=== PATIENT | male | born 1960 | race Caucasian/White ===

== ENCOUNTER 2017-11-19 14:32 | Inpatient (IN) | payer OTHER ==
[2017-11-19 17:02] VITALS: BMI 29.0
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
[2017-11-19] MEDS ORDERED: guaiFENesin/D-METHORPHAN HB 10 ML UNIT-DOSE CUPS PO PRN (20:59)
[2017-11-19] MEDS ORDERED: chlordiazePOXIDE HCL 25 MG CAPSULE PO PRN (20:59)
[2017-11-19] MEDS ORDERED: MAGNESIUM CITRATE 300 ML BOTTLE PO PRN (20:59)
[2017-11-19] MEDS ORDERED: P-EPHED 60MG/TRIPROLIDI 2.5MG TABLET PO PRN (20:59)
[2017-11-19] MEDS ORDERED: LOPERAMIDE HCL 2 MG CAPSULE PO PRN (20:59)
[2017-11-19] MEDS ORDERED: IBUPROFEN 400 MG TABLET (FP) PO PRN (20:59)
[2017-11-19] MEDS ORDERED: ACETAMINOPHEN 325 MG TABLET (FP) PO PRN (20:59)
[2017-11-19] MEDS ORDERED: chlordiazePOXIDE HCL 25 MG CAPSULE PO ONE (20:59)
[2017-11-19] MEDS ORDERED: MAG HYDROX/AL HYDROX/SIMETH 30 ML UNIT-DOSE CUP PO PRN (20:59)
[2017-11-19] MEDS ORDERED: MAGNESIUM HYDROX 2400MG/30ML ORAL SUSPENSION 30 ML CUP PO PRN (20:59)
[2017-11-19] MEDS ORDERED: MENTHOL/PHENOL 1 EACH UD MM PRN (20:59)
[2017-11-19] MEDS ORDERED: MELATONIN 5 MG TABLETS PO PRN (22:00)
[2017-11-19] MEDS: THIAMINE HCL 100 MG TABLET (FP) PO SCH (22:02)
[2017-11-19] MEDS: chlordiazePOXIDE HCL 25 MG CAPSULE PO SCH (23:26)
[2017-11-20 01:53] LABS: URINE APPEARANCE CLEAR; URINE BILIRUBIN NEGATIVE (<2.0 mg/dL); URINE BLOOD NEGATIVE (NEGATIVE); URINE COLOR DKYELLOW; URINE GLUCOSE (UA) NEGATIVE (NEGATIVE); URINE KETONE TRACE (NEGATIVE); URINE LEUK ESTERASE NEGATIVE (NEGATIVE); URINE NITRITE NEGATIVE (NEGATIVE)
[2017-11-20 01:56] LABS: URINE PROTEIN 2+ (NEGATIVE)
[2017-11-20 02:01] LABS: URINE MUCUS MANY
[2017-11-20] MEDS: chlordiazePOXIDE HCL 25 MG CAPSULE PO SCH ×4 (05:55→22:28)
--- NOTE | 2017-11-20 10:06 | EKG ---
Test Reason : Blood Pressure : / mmHG Vent. Rate : 087 BPM Atrial Rate : 087 BPM P-R Int : 178 ms QRS Dur : 098 ms QT Int : 372 ms P-R-T Axes : 027 005 048 degrees QTc Int : 447 ms NORMAL SINUS RHYTHM NON-SPECIFIC INTRA-VENTRICULAR CONDUCTION DELAY NO PREVIOUS ECGS AVAILABLE Confirmed by GANGA SELF MD ([id number]) on 11/20/2017 10:06:25 AM Referred By: Confirmed By:GANGA SELF MD
[2017-11-20 10:25] LABS: HEMATOCRIT 43.3 % (35.4-49); MCH 33.7 pg (25.7-33.7); MCHC 34.7 g/dl (32.0-35.9); MEAN CELL VOLUME 97.4 fl (80-96); MEAN PLT VOLUME 8.8 fl (7.5-11.1); PLATELET COUNT 144 K/MM3 (134-434); RBC 4.45 M/mm3 (4.00-5.60); RDW 13.3 % (11.9-15.9); WHITE BLOOD COUNT 8.7 K/mm3 (4.0-10.0)
[2017-11-20 10:30] LABS: ALBUMIN 3.7 g/dl (3.4-5.0); CALCIUM 8.8 mg/dL (8.5-10.1); CHLORIDE 100 mmol/L (98-107); POTASSIUM 3.4 mmol/L (3.5-5.1); SODIUM 140 mmol/L (136-145)
[2017-11-20 10:36] LABS: ALK PHOS 97 U/L (45-117); ANION GAP 13 (8-16); BILIRUBIN,TOTAL 1.2 mg/dL (0.2-1.0); BLOOD UREA NITROGEN 10 mg/dL (7-18); CO2 27 mmol/L (21-32); CREATININE 0.9 mg/dL (0.7-1.3); GLUCOSE,RANDOM 109 mg/dL (74-106); SGOT/AST 67 U/L (15-37); SGPT/ALT 56 U/L (12-78); TOT PROT 7.1 g/dl (6.4-8.2)
[2017-11-20] MEDS: PRENATAL VITAMINS W/ FOLIC ACID TABLET (FP) PO SCH (10:53)
--- NOTE | 2017-11-20 12:20 | PN ---
S CIWA - CIWA Score Nausea/Vomitin Muscle Tremors: 3 Anxiety: 3 Agitation: 2 Paroxysmal Sweats: 1-Minimal Palms Moist Orientation: 0-Oriented Tacttile Disturbances: 1-Very Mild Itch/Numbness Auditory Disturbances: 1-Very Mild Visual Disturbances: 0-None Headache: 2-Mild CIWA-Ar Total Score: 16 BHS Progress Note (SOAP) Subjective: ALERT,IRRITABLE,ANXIOUS,INTERRUPTED SLEEP,TREMOR Objective: 11/20/17 12:17 Vital Signs Temperature 99.1 F 11/20/17 10:00 Pulse Rate 116 H 11/20/17 10:00 Respiratory Rate 20 11/20/17 10:00 Blood Pressure 122/90 11/20/17 10:00 O2 Sat by Pulse Oximetry (%) EKG NSR,NORMAL ECG,87/MIN Laboratory Last Values WBC 8.7 K/mm3 (4.0-10.0) D 11/20/17 08:00 RBC 4.45 M/mm3 (4.00-5.60) 11/20/17 08:00 Hgb 15.0 GM/dL (11.7-16.9) D 11/20/17 08:00 Hct 43.3 % (35.4-49) 11/20/17 08:00 MCV 97.4 fl (80-96) H 11/20/17 08:00 MCH 33.7 pg (25.7-33.7) 11/20/17 08:00 MCHC 34.7 g/dl (32.0-35.9) 11/20/17 08:00 RDW 13.3 % (11.9-15.9) D 11/20/17 08:00 Plt Count 144 K/MM3 (134-434) D 11/20/17 08:00 MPV 8.8 fl (7.5-11.1) 11/20/17 08:00 Sodium 140 mmol/L (136-145) 11/20/17 08:00 Potassium 3.4 mmol/L (3.5-5.1) L 11/20/17 08:00 Chloride 100 mmol/L (98-107) 11/20/17 08:00 Carbon Dioxide 27 mmol/L (21-32) 11/20/17 08:00 Anion Gap 13 (8-16) 11/20/17 08:00 BUN 10 mg/dL (7-18) D 11/20/17 08:00 Creatinine 0.9 mg/dL (0.7-1.3) D 11/20/17 08:00 Creat Clearance w eGFR > 60 (>60) 11/20/17 08:00 Random Glucose 109 mg/dL (74-106) H 11/20/17 08:00 Calcium 8.8 mg/dL (8.5-10.1) 11/20/17 08:00 Total Bilirubin 1.2 mg/dL (0.2-1.0) H D 11/20/17 08:00 AST 67 U/L (15-37) H D 11/20/17 08:00 ALT 56 U/L (12-78) 11/20/17 08:00 Alkaline Phosphatase 97 U/L (45-117) D 11/20/17 08:00 Total Protein 7.1 g/dl (6.4-8.2) 11/20/17 08:00 Albumin 3.7 g/dl (3.4-5.0) D 11/20/17 08:00 Urine Color Dkyellow 11/20/17 00:19 Urine Appearance Clear 11/20/17 00:19 Urine pH 7.0 (5.0-8.0) 11/20/17 00:19 Ur Specific [place] 1.021 (1.001-1.035) 11/20/17 00:19 Urine Protein 2+ (NEGATIVE) H 11/20/17 00:19 Urine Glucose (UA) Negative (NEGATIVE) 11/20/17 00:19 Urine Ketones Trace (NEGATIVE) H 11/20/17 00:19 Urine Blood Negative (NEGATIVE) 11/20/17 00:19 Urine Nitrite Negative (NEGATIVE) 11/20/17 00:19 Urine Bilirubin Negative (<2.0 mg/dL) 11/20/17 00:19 Urine Urobilinogen 2.0 mg/dL (0.2-1.0) 11/20/17 00:19 Ur Leukocyte Esterase Negative (NEGATIVE) 11/20/17 00:19 Urine WBC (Auto) 1 /hpf (3-5) 11/20/17 00:19 Urine RBC (Auto) 3 /hpf (0-3) 11/20/17 00:19 Urine Mucus Many 11/20/17 00:19 RPR Titer Nonreactive (NONREACTIVE) 11/20/17 08:00 Assessment: 11/20/17 12:19 WITHDRAWAL SYMPTOM Plan: CONTINUE DETOX,KIS 3.4,HYPOKALEMIA,K DUR 20 MEQ PO DAILY
[2017-11-20] MEDS: RANITIDINE HCL 150 MG TABLET (FP) PO SCH (13:04)
[2017-11-20] MEDS: POTASSIUM CHLORIDE TABS 20 MEQ TABLET.ER (FP) PO SCH (13:18)
--- NOTE | 2017-11-20 14:50 | CONSULT ---
[facility] Psychiatric Consult - Data Date of interview: 11/20/17 Admission source: [facility] Identifying data: One of multiple admissions to [facility] for this 57 y/o male seeking detox treatment at [address] [place] [address] for alcohol dependence.Patient is without children,domiciled,unemployed (disabled) and supported on [facility] benefits. Substance Abuse History: Patient confirms current alcohol abuse as detailed in this [facility] report : Smoking history: Former smoker. Have you smoked in the past 12 months: No. Aproximately how many cigarettes per day: 0. If you are a former smoker, when did you quit?: 61/2 years ago. Hx Chewing Tobacco Use: No. Initiated information on smoking cessation: No. - Substance & Tx. History. Hx Alcohol Use: Yes. Hx Substance Use: Yes. Substance Use Type: Alcohol. Hx Substance Use Treatment: Yes ([facility] June 2016). - Substances Abused. Alcohol. Route: Oral. Frequency: Daily. Amount used: 3 CANS BEER. Age of first use: 44. Date of Last Use: 11/19/17 Medical History: Remarkable for a history of seizure disorder,hypertension,DVT in right leg tendinitis in left leg,injury to left biceps and left rotator cuff (self-report),herniated discs,chronic lumbar pain,dyslipidemia and past umbilical herniorraphy.Patient underwent neurosurgery (craniotomy) in 2014 for cerebral hemorrhage. Psychiatric History: History of two psychiatric hospitalizations in 2016 ( [facility] and [facility]).Diagnosed with Bipolar Disorder.Prescribed olanzapine 10 mg/hs + celexa 50 mg/day + trazodone 50 mg/ hs.Mr Joseph endorses a remote history of one suicide attempt via overdose ( adolescence).patient goes to the [facility] OPD clinic for his psychiatric aftercare. Physical/Sexual Abuse/Trauma History: Patient denies history of abuse. Additional Comment: Urine Drug Screen Results: TCA-Tricyclic Antidepressant.Noted. Mental Status Exam - Mental Status Exam Alert and Oriented to: Time, Place, Person Cognitive Function: Good Patient Appearance: Well Groomed Mood: Nervous, Withdrawn Affect: Mood Congruent Patient Behavior: Fatigued, Appropriate, Cooperative Speech Pattern: Clear, Appropriate Voice Loudness: Normal Thought Process: Goal Oriented Thought Disorder: Not Present Hallucinations: Denies Suicidal Ideation: Denies Homicidal Ideation: Denies Insight/Judgement: Fair Sleep: Poorly, Difficulty falling asleep Appetite: Good Gait/Station: Other (ambulates with a walker) Psychiatric Findings - Problem List ([place] 1, 2,3) (1) Alcohol dependence with uncomplicated withdrawal Status: Acute (2) Nicotine dependence Status: Acute Qualifiers: Nicotine product type: cigarettes Substance use status: uncomplicated Qualified Code(s): F17.210 - Nicotine dependence, cigarettes, uncomplicated (3) Bipolar disorder Status: Chronic Comment: As per self-report.On medications.Followed at [facility]PD clinic in the [place]. (4) Insomnia Status: Acute - Initial Treatment Plan Initial Treatment Plan: Psychoeducation.Records revisited.Sleep hygiene.Pharmacy claims reviewed (refills dated 11/19/17 for celexa 20 mg # 30 + trazodone 100 mg # 30 at [facility] + olanzapine 10 mg # 30 on 10/24/17 ) .No mention of seroquel by patient (although seen in pharmacy claims) .Medications ordered : zyprexa 10 mg po daily + trazodone 100 mg po hs + celexa 20 mg po daily.Side effects/benefits of each drug are discussed with the patient.He is specifically made aware of the potential for priapism,suicidal ideation,sexual dysfunction,metabolic syndrome and cardiovascular adverese events.Mr Roa endorses his medications as well tolerated and effective.Insists on their continuation in this hospital course.Falls precautions.Observation. NO scripts needed at discharge from [facility].
[2017-11-20] MEDS ORDERED: traZODone HCL 50 MG TABLET (FP) PO SCH (22:00)
[2017-11-20] MEDS: traZODone HCL 100 MG TABLET (FP) PO SCH (22:28)
[2017-11-20] MEDS: THIAMINE HCL 100 MG TABLET (FP) PO SCH (22:28)
[2017-11-21] MEDS: chlordiazePOXIDE HCL 25 MG CAPSULE PO SCH ×3 (05:30→18:07)
[2017-11-21] MEDS: OLANZapine 10 MG TABLET PO SCH (10:41)
[2017-11-21] MEDS: RANITIDINE HCL 150 MG TABLET (FP) PO SCH (10:41)
[2017-11-21] MEDS: CITALOPRAM HYDROBROMIDE 20 MG TABLET (FP) PO SCH (10:41)
[2017-11-21] MEDS: PRENATAL VITAMINS W/ FOLIC ACID TABLET (FP) PO SCH (10:41)
[2017-11-21] MEDS: POTASSIUM CHLORIDE TABS 20 MEQ TABLET.ER (FP) PO SCH (10:41)
--- NOTE | 2017-11-21 14:29 | PN ---
S CIWA - CIWA Score Nausea/Vomitin Muscle Tremors: 3 Anxiety: 2 Agitation: 2 Paroxysmal Sweats: 1-Minimal Palms Moist Orientation: 0-Oriented Tacttile Disturbances: 1-Very Mild Itch/Numbness Auditory Disturbances: 1-Very Mild Visual Disturbances: 0-None Headache: 2-Mild CIWA-Ar Total Score: 15 BHS Progress Note (SOAP) Subjective: ALERT,IRRITABLE,ANXIOUS,INTERRUPTED SLEEP,TREMOR Objective: 11/21/17 14:28 Vital Signs Temperature 98.1 F 11/21/17 11:16 Pulse Rate 78 11/21/17 11:16 Respiratory Rate 18 11/21/17 11:16 Blood Pressure 144/78 11/21/17 11:16 O2 Sat by Pulse Oximetry (%) Assessment: 11/21/17 14:28 WITHDRAWAL SYMPTOM Plan: CONTINUE DETOX,REPEAT K IN AM
[2017-11-21] MEDS: traZODone HCL 100 MG TABLET (FP) PO SCH (22:37)
[2017-11-21] MEDS: THIAMINE HCL 100 MG TABLET (FP) PO SCH (22:37)
[2017-11-21] MEDS: chlordiazePOXIDE 5 MG CAPSULE PO SCH (22:37)
[2017-11-22] MEDS: chlordiazePOXIDE 5 MG CAPSULE PO SCH ×3 (05:43→18:05)
[2017-11-22] MEDS: RANITIDINE HCL 150 MG TABLET (FP) PO SCH (10:28)
[2017-11-22] MEDS: POTASSIUM CHLORIDE TABS 20 MEQ TABLET.ER (FP) PO SCH (10:29)
[2017-11-22] MEDS: OLANZapine 10 MG TABLET PO SCH (10:29)
[2017-11-22] MEDS: CITALOPRAM HYDROBROMIDE 20 MG TABLET (FP) PO SCH (10:29)
[2017-11-22] MEDS: PRENATAL VITAMINS W/ FOLIC ACID TABLET (FP) PO SCH (10:29)
--- NOTE | 2017-11-22 14:44 | PN ---
BHS Progress Note (SOAP) Subjective: feeling better no tremor less sweat sleep throughout the night alert denies gi distress denies pain Objective: 11/22/17 14:43 Vital Signs Temperature 97.2 F L 11/22/17 13:08 Pulse Rate 89 11/22/17 13:08 Respiratory Rate 20 11/22/17 13:08 Blood Pressure 133/81 11/22/17 13:08 O2 Sat by Pulse Oximetry (%) Laboratory Last Values WBC 8.7 K/mm3 (4.0-10.0) D 11/20/17 08:00 RBC 4.45 M/mm3 (4.00-5.60) 11/20/17 08:00 Hgb 15.0 GM/dL (11.7-16.9) D 11/20/17 08:00 Hct 43.3 % (35.4-49) 11/20/17 08:00 MCV 97.4 fl (80-96) H 11/20/17 08:00 MCH 33.7 pg (25.7-33.7) 11/20/17 08:00 MCHC 34.7 g/dl (32.0-35.9) 11/20/17 08:00 RDW 13.3 % (11.9-15.9) D 11/20/17 08:00 Plt Count 144 K/MM3 (134-434) D 11/20/17 08:00 MPV 8.8 fl (7.5-11.1) 11/20/17 08:00 Sodium 140 mmol/L (136-145) 11/20/17 08:00 Potassium 3.7 mmol/L (3.5-5.1) 11/22/17 07:40 Chloride 100 mmol/L (98-107) 11/20/17 08:00 Carbon Dioxide 27 mmol/L (21-32) 11/20/17 08:00 Anion Gap 13 (8-16) 11/20/17 08:00 BUN 10 mg/dL (7-18) D 11/20/17 08:00 Creatinine 0.9 mg/dL (0.7-1.3) D 11/20/17 08:00 Creat Clearance w eGFR > 60 (>60) 11/20/17 08:00 Random Glucose 109 mg/dL (74-106) H 11/20/17 08:00 Calcium 8.8 mg/dL (8.5-10.1) 11/20/17 08:00 Total Bilirubin 1.2 mg/dL (0.2-1.0) H D 11/20/17 08:00 AST 67 U/L (15-37) H D 11/20/17 08:00 ALT 56 U/L (12-78) 11/20/17 08:00 Alkaline Phosphatase 97 U/L (45-117) D 11/20/17 08:00 Total Protein 7.1 g/dl (6.4-8.2) 11/20/17 08:00 Albumin 3.7 g/dl (3.4-5.0) D 11/20/17 08:00 Urine Color Dkyellow 11/20/17 00:19 Urine Appearance Clear 11/20/17 00:19 Urine pH 7.0 (5.0-8.0) 11/20/17 00:19 Ur Specific [place] 1.021 (1.001-1.035) 11/20/17 00:19 Urine Protein 2+ (NEGATIVE) H 11/20/17 00:19 Urine Glucose (UA) Negative (NEGATIVE) 11/20/17 00:19 Urine Ketones Trace (NEGATIVE) H 11/20/17 00:19 Urine Blood Negative (NEGATIVE) 11/20/17 00:19 Urine Nitrite Negative (NEGATIVE) 11/20/17 00:19 Urine Bilirubin Negative (<2.0 mg/dL) 11/20/17 00:19 Urine Urobilinogen 2.0 mg/dL (0.2-1.0) 11/20/17 00:19 Ur Leukocyte Esterase Negative (NEGATIVE) 11/20/17 00:19 Urine WBC (Auto) 1 /hpf (3-5) 11/20/17 00:19 Urine RBC (Auto) 3 /hpf (0-3) 11/20/17 00:19 Urine Mucus Many 11/20/17 00:19 RPR Titer Nonreactive (NONREACTIVE) 11/20/17 08:00 lab noted Assessment: 11/22/17 14:43 mild withdrawal sx Plan: medically supervised detox
[2017-11-22] MEDS: chlordiazePOXIDE HCL 10 MG CAPSULE PO SCH (22:35)
[2017-11-22] MEDS: THIAMINE HCL 100 MG TABLET (FP) PO SCH (22:35)
[2017-11-22] MEDS: traZODone HCL 100 MG TABLET (FP) PO SCH (22:35)
[2017-11-23] MEDS: chlordiazePOXIDE HCL 10 MG CAPSULE PO SCH ×2 (05:36→10:43)
--- NOTE | 2017-11-23 09:14 | DS ---
[facility] Detox Discharge Summary Admission Date: 11/19/17 Discharge Date: 11/23/17 - History Present History: Alcohol Dependence Additional Comments: FOLLOW UP WITH AFTER CARE PROGRAM ARRANGEMENT Pertinent Past History: HYPERTENSION GERD NEUROPATHY WALKER AMBULATORY AID WEIGHT LOSS HYPOKALEMIA SEIZURE HISTORY OF BRAIN SURGERY SUBDURAL HEMATOMA HISTORY OF DVT SYNCOPE - Physical Exam Results Vital Signs: Vital Signs Temperature 97.9 F 11/23/17 05:58 Pulse Rate 78 11/23/17 05:58 Respiratory Rate 18 11/23/17 05:58 Blood Pressure 114/73 11/23/17 05:58 O2 Sat by Pulse Oximetry (%) Pertinent Admission Physical Exam Findings: WITHDRAWAL SIGNS AND SYMPTOM Laboratory Last Values WBC 8.7 K/mm3 (4.0-10.0) D 11/20/17 08:00 RBC 4.45 M/mm3 (4.00-5.60) 11/20/17 08:00 Hgb 15.0 GM/dL (11.7-16.9) D 11/20/17 08:00 Hct 43.3 % (35.4-49) 11/20/17 08:00 MCV 97.4 fl (80-96) H 11/20/17 08:00 MCH 33.7 pg (25.7-33.7) 11/20/17 08:00 MCHC 34.7 g/dl (32.0-35.9) 11/20/17 08:00 RDW 13.3 % (11.9-15.9) D 11/20/17 08:00 Plt Count 144 K/MM3 (134-434) D 11/20/17 08:00 MPV 8.8 fl (7.5-11.1) 11/20/17 08:00 Sodium 140 mmol/L (136-145) 11/20/17 08:00 Potassium 3.7 mmol/L (3.5-5.1) 11/22/17 07:40 Chloride 100 mmol/L (98-107) 11/20/17 08:00 Carbon Dioxide 27 mmol/L (21-32) 11/20/17 08:00 Anion Gap 13 (8-16) 11/20/17 08:00 BUN 10 mg/dL (7-18) D 11/20/17 08:00 Creatinine 0.9 mg/dL (0.7-1.3) D 11/20/17 08:00 Creat Clearance w eGFR > 60 (>60) 11/20/17 08:00 Random Glucose 109 mg/dL (74-106) H 11/20/17 08:00 Calcium 8.8 mg/dL (8.5-10.1) 11/20/17 08:00 Total Bilirubin 1.2 mg/dL (0.2-1.0) H D 11/20/17 08:00 AST 67 U/L (15-37) H D 11/20/17 08:00 ALT 56 U/L (12-78) 11/20/17 08:00 Alkaline Phosphatase 97 U/L (45-117) D 11/20/17 08:00 Total Protein 7.1 g/dl (6.4-8.2) 11/20/17 08:00 Albumin 3.7 g/dl (3.4-5.0) D 11/20/17 08:00 Urine Color Dkyellow 11/20/17 00:19 Urine Appearance Clear 11/20/17 00:19 Urine pH 7.0 (5.0-8.0) 11/20/17 00:19 Ur Specific [place] 1.021 (1.001-1.035) 11/20/17 00:19 Urine Protein 2+ (NEGATIVE) H 11/20/17 00:19 Urine Glucose (UA) Negative (NEGATIVE) 11/20/17 00:19 Urine Ketones Trace (NEGATIVE) H 11/20/17 00:19 Urine Blood Negative (NEGATIVE) 11/20/17 00:19 Urine Nitrite Negative (NEGATIVE) 11/20/17 00:19 Urine Bilirubin Negative (<2.0 mg/dL) 11/20/17 00:19 Urine Urobilinogen 2.0 mg/dL (0.2-1.0) 11/20/17 00:19 Ur Leukocyte Esterase Negative (NEGATIVE) 11/20/17 00:19 Urine WBC (Auto) 1 /hpf (3-5) 11/20/17 00:19 Urine RBC (Auto) 3 /hpf (0-3) 11/20/17 00:19 Urine Mucus Many 11/20/17 00:19 RPR Titer Nonreactive (NONREACTIVE) 11/20/17 08:00 Vital Signs Temperature 97.9 F 11/23/17 05:58 Pulse Rate 78 04/02/18 05:58 Respiratory Rate 18 11/23/17 05:58 Blood Pressure 114/73 11/23/17 05:58 O2 Sat by Pulse Oximetry (%) - Treatment Hospital Course: Detox Protocol Followed, Detoxed Safely, Responded well, Discharged Condition Good, Rehab Referral Accepted - Medication Discharge Medications: Ambulatory Orders Metoprolol Succinate [Toprol Xl] 50 mg PO DAILY 11/19/17 Olanzapine 10 mg PO DAILY 11/19/17 Trazodone HCl 100 mg PO HS 11/19/17 - Diagnosis (1) Alcohol dependence with uncomplicated withdrawal Current Visit: Yes Status: Acute (2) Hypokalemia Current Visit: Yes Status: Acute (3) Hx of deep venous thrombosis Current Visit: Yes Status: Acute (4) GERD (gastroesophageal reflux disease) Current Visit: Yes Status: Chronic Qualifiers: Esophagitis presence: without esophagitis Qualified Code(s): K21.9 - Gastro -esophageal reflux disease without esophagitis (5) Hypertension Current Visit: Yes Status: Chronic Qualifiers: Hypertension type: essential hypertension (6) Neuropathy Current Visit: Yes Status: Chronic (7) Seizure Current Visit: No Status: Chronic (8) Syncope Current Visit: No Status: Chronic (9) Walker as ambulation aid Current Visit: No Status: Chronic - AMA Did Patient Leave Against Medical Advice: No
--- NOTE | 2017-11-23 09:19 | PN ---
S Progress Note (SOAP) Subjective: ALERT,NO COMPLAINT Objective: 11/23/17 09:17 Vital Signs Temperature 97.9 F 11/23/17 05:58 Pulse Rate 78 11/23/17 05:58 Respiratory Rate 18 11/23/17 05:58 Blood Pressure 114/73 11/23/17 05:58 O2 Sat by Pulse Oximetry (%) Assessment: 11/23/17 09:18 DETOX COMPLETED,NO WITHDRAWAL SYMPTOM Plan: DETOX COMPLETED,NO WITHDRAWAL SYMPTOM,DISCHARGE TODAY
[2017-11-23] MEDS: RANITIDINE HCL 150 MG TABLET (FP) PO SCH (10:43)
[2017-11-23] MEDS: CITALOPRAM HYDROBROMIDE 20 MG TABLET (FP) PO SCH (10:43)
[2017-11-23] MEDS: PRENATAL VITAMINS W/ FOLIC ACID TABLET (FP) PO SCH (10:44)
[2017-11-23] MEDS: OLANZapine 10 MG TABLET PO SCH (10:45)
[2017-11-23] MEDS: POTASSIUM CHLORIDE TABS 20 MEQ TABLET.ER (FP) PO SCH (10:47)
[2017-11-23 13:08] VITALS: BP 124/94; PULSE 101; TEMP 98.1
== END 2017-11-23 12:18 | disposition home or self-care (01) | DRG 897 ==
LOC: YASAS 14:32 → Y6N 21:06
PROVIDERS: ADMIT Internal Medicine; ATTEND Internal Medicine
PROC: HZ2ZZZZ Detoxification Services for Substance Abuse Treatment (ICD-10-PCS; principal; 2017-11-19)
DX: F10.230 Alcohol dependence with withdrawal, uncomplicated (principal); F31.89 Other bipolar disorder; F17.210 Nicotine dependence, cigarettes, uncomplicated; G47.00 Insomnia, unspecified; I10 Essential (primary) hypertension; E87.6 Hypokalemia; K21.9 Gastro-esophageal reflux disease without esophagitis; Z86.69 Personal history of other diseases of the nervous system and sense organs; R26.89 Other abnormalities of gait and mobility; Z99.89 Dependence on other enabling machines and devices; R63.4 Abnormal weight loss; Z68.29 Body mass index [BMI] 29.0-29.9, adult; Z91.5 Personal history of self-harm
CPT/HCPCS: 36415; 80053; 81003; 81015; 84132; 85027; 86593; 93005; 93010

== ENCOUNTER 2017-12-22 10:45 | Inpatient (IN) | payer OTHER ==
--- NOTE | 2017-12-22 10:45 | PN ---
S Progress Note Note: Patient fell while signing in hit head on left side but no abrasion burise or broken skin also caliams ot have injured left knee. FAlll protocol 1 to be ordered andmedical clearance by ED needed prior to admitting for alcohol detox. VSS
[2017-12-22 10:55] VITALS: BMI 29.0
--- NOTE | 2017-12-22 14:38 | HP ---
CIWA Score - CIWA Score Nausea/Vomitin-Mild Nausea/No Vomiting Muscle Tremors: 4-Moderate,w/Arms Extend Anxiety: 4-Mod. Anxious/Guarded Agitation: 4-Moderately Restless Paroxysmal Sweats: 1-Minimal Palms Moist Orientation: 1-Uncertain about Date Tacttile Disturbances: 0-None Auditory Disturbances: 0-None Visual Disturbances: 0-None Headache: 0-None Present CIWA-Ar Total Score: 15 Admission ROS BHS - HPI Chief Complaint: withdrawal sx alcohol return from er treated with fall hit head to ground negative ct scan patient is alert oriented x 2 ambulate with walker speech clearly uncertain about date long history of hypokalemia taking K+ supplement lab pending history of anemia no treatment lab pending Allergies/Adverse Reactions: Allergies Allergy/AdvReac Type Severity Reaction Status Date / Time No Known Allergies Allergy Verified 12/22/17 15:00 History of Present Illness: 57 years old male with long history of alcohol dependence has cerebral hemorrage 2014 history of right leg dvt ambulate with walker left shoulder rotated cup reparied 2014 is admitted to detox Exam Limitations: No Limitations - Ebola screening Have you traveled outside of the country in the last 21 days: No Have you had contact with anyone from an Ebola affected area: No Have you been sick,other than usual withdrawal symptoms: No Do you have a fever: No - Review of Systems Constitutional: Diaphoresis, Weight Stable EENT: reports: No Symptoms Reported Respiratory: reports: No Symptoms reported Cardiac: reports: No Symptoms Reported GI: reports: Diarrhea, Nausea, Indigestion, Abdominal cramping : reports: No Symptoms Reported Musculoskeletal: reports: No Symptoms Reported Integumentary: reports: No Symptoms Reported Neuro: reports: Seizure (last seizure a year ago), Tremors Endocrine: reports: No Symptoms Reported Hematology: reports: No Symptoms Reported Psychiatric: reports: Judgement Intact, Anxious, Depressed Other Systems: Reviewed and Negative Patient History - Patient Medical History Hx Anemia: No Hx Asthma: No Hx Chronic Obstructive Pulmonary Disease (COPD): No Hx Cancer: No Hx Cardiac Disorders: No Hx Congestive Heart Failure: No Hx Hypertension: Yes Hx Hypercholesterolemia: No Hx Pacemaker: No HX Cerebrovascular Accident: No Hx Seizures: No Hx Dementia: No Hx Diabetes: No Hx Gastrointestinal Disorders: Yes Hx Liver Disease: No Hx Genitourinary Disorders: No Hx Sexually Transmitted Disorders: No Hx Renal Disease (ESRD): No Hx Thyroid Disease: No Hx Human Immunodeficiency Virus (HIV): No (2016, declines testing today) Hx Hepatitis C: No Hx Depression: Yes (take medication (doesn't remember name of medication)) Hx Suicide Attempt: Yes (as a teenage , tried to take pills ) Hx Bipolar Disorder: No Hx Schizophrenia: No - Patient Surgical History Past Surgical History: Yes Hx Neurologic Surgery: Yes (S/P CRANIOTOMY FOR BLEEDING IN 02/05 from taking Xarelto) Hx Cataract Extraction: No Hx Cardiac Surgery: No Hx Lung Surgery: No Hx Breast Surgery: No Hx Breast Biopsy: No Hx Abdominal Surgery: Yes (Umbilical hernia repair x 2 many years ago) Hx Appendectomy: No Hx Cholecystectomy: No Hx Genitourinary Surgery: No Hx Orthopedic Surgery: Yes Other Surgical History: HERNIA REPAIR, HEAD SX Anesthesia Reaction: No - PPD History Previous Implant?: Yes Documented Results: Negative w/o proof Implanted On Prior [facility] Admission?: Yes Date: 11/21/17 Results: 0 MM PPD to be Administered?: No - Smoking Cessation Smoking history: Former smoker Have you smoked in the past 12 months: No Aproximately how many cigarettes per day: 0 If you are a former smoker, when did you quit?: 61/2 years ago Hx Chewing Tobacco Use: No Initiated information on smoking cessation: No - Substance & Tx. History Hx Alcohol Use: Yes Hx Substance Use: Yes Substance Use Type: Alcohol, Tranquilizers Hx Substance Use Treatment: Yes (11/2017 [facility]) - Substances Abused Alcohol-vodka/beer Route: Oral Frequency: Daily Amount used: 3-5 pts./1-6 pk. Age of first use: 16 Date of Last Use: 12/22/17 Family Disease History - Family Disease History Family Disease History: CA: Mother (BREAST ON REMISSION), Other: Father ( alcohol ) Admission Physical Exam BHS - Vital Signs Vital Signs: Vital Signs - 24 hr 12/22/17 12/22/17 10:48 10:50 Temperature 97.4 F L 97.4 F L Pulse Rate 105 H 105 H Respiratory 20 20 Rate Blood Pressure 140/90 140/90 - Physical General Appearance: Yes: Mild Distress, Obese, Tremorous, Irritable, Sweating, Anxious HEENTM: Yes: Hearing grossly Normal, Normocephalic, Normal Voice Respiratory: Yes: Chest Non-Tender, Lungs Clear, Normal Breath Sounds, No Respiratory Distress, No Accessory Muscle Use Neck: Yes: Supple, Trachea in good position Breast: Yes: Breasts Symetrical Cardiology: Yes: Regular Rhythm, S1, S2, Tachycardia Abdominal: Yes: Non Tender, Flat, Increased Bowel Sounds Genitourinary: Yes: Within Normal Limits Back: Yes: Normal Inspection Musculoskeletal: Yes: Gait Steady (walker), Back pain, Muscle Pain (left shoulder) Extremities: Yes: Normal Inspection, Non-Tender, Tremors Neurological: Yes: Alert, Motor Strength 5/5 (walker), Normal Response, Depressed Affect Integumentary: Yes: Warm Lymphatic: Yes: Within Normal Limits - Diagnostic (1) Alcohol dependence with uncomplicated withdrawal Current Visit: Yes Status: Acute (2) Nicotine dependence Current Visit: Yes Status: Acute Qualifiers: Nicotine product type: cigarettes Substance use status: in withdrawal Qualified Code(s): F17.213 - Nicotine dependence, cigarettes, with withdrawal (3) GERD (gastroesophageal reflux disease) Current Visit: Yes Status: Chronic Qualifiers: Esophagitis presence: without esophagitis Qualified Code(s): K21.9 - Gastro -esophageal reflux disease without esophagitis Cleared for Admission [facility] - Detox or Rehab [facility] Level of Care: Medically Managed Detox Regimen/Protocol: Librium [facility] Breath Alcohol Content Breath Alcohol Content: 0.178 Urine Drug Screen - Control Is Test Valid: Yes - Results Drug Screen Negative: No Urine Drug Screen Results: MET-Methamphetamine, BZO-Benzodiazepines
[2017-12-22] MEDS ORDERED: MAGNESIUM HYDROX 2400MG/30ML ORAL SUSPENSION 30 ML CUP PO PRN (14:48)
[2017-12-22] MEDS ORDERED: ACETAMINOPHEN 325 MG TABLET (FP) PO PRN (14:48)
[2017-12-22] MEDS ORDERED: MAGNESIUM CITRATE 300 ML BOTTLE PO PRN (14:48)
[2017-12-22] MEDS ORDERED: MENTHOL/PHENOL 1 EACH UD MM PRN (14:48)
[2017-12-22] MEDS ORDERED: P-EPHED 60MG/TRIPROLIDI 2.5MG TABLET PO PRN (14:48)
[2017-12-22] MEDS ORDERED: MAG HYDROX/AL HYDROX/SIMETH 30 ML UNIT-DOSE CUP PO PRN (14:48)
[2017-12-22] MEDS ORDERED: guaiFENesin/D-METHORPHAN HB 10 ML UNIT-DOSE CUPS PO PRN (14:48)
[2017-12-22] MEDS ORDERED: TRIMETHOBENZAMIDE HCL 200MG/2ML INJ IM ONE (18:05)
[2017-12-22] MEDS ORDERED: ONDANSETRON *ODT* 4 MG TABLET SL PRN (18:06)
[2017-12-22] MEDS: chlordiazePOXIDE HCL 25 MG CAPSULE PO PRN (18:32)
[2017-12-22] MEDS: RANITIDINE HCL 150 MG TABLET (FP) PO SCH (22:23)
[2017-12-22] MEDS: THIAMINE HCL 100 MG TABLET (FP) PO SCH (22:23)
[2017-12-22] MEDS: METOPROLOL TARTRATE 25 MG TABLET (FP) PO SCH (22:23)
[2017-12-22] MEDS: chlordiazePOXIDE HCL 25 MG CAPSULE PO SCH (22:24)
[2017-12-23] MEDS: chlordiazePOXIDE HCL 25 MG CAPSULE PO SCH ×4 (05:37→22:22)
[2017-12-23] MEDS: chlordiazePOXIDE HCL 25 MG CAPSULE PO PRN (07:40)
[2017-12-23 08:17] LABS: URINE APPEARANCE CLOUDY; URINE COLOR AMBER; URINE GLUCOSE (UA) NEGATIVE (NEGATIVE); URINE KETONE NEGATIVE (NEGATIVE); URINE LEUK ESTERASE NEGATIVE (NEGATIVE); URINE NITRITE NEGATIVE (NEGATIVE); URINE UROBILINOGEN 4.0 E.U/dl mg/dL (0.2-1.0)
[2017-12-23 08:23] LABS: URINE PROTEIN 2+ (NEGATIVE)
[2017-12-23 08:30] LABS: URINE HYALINE CAST 9 /lpf; URINE MUCUS MANY
[2017-12-23 09:45] LABS: HEMATOCRIT 45.1 % (35.4-49); HEMOGLOBIN 15.5 GM/dL (11.7-16.9); MCH 33.4 pg (25.7-33.7); MCHC 34.3 g/dl (32.0-35.9); MEAN CELL VOLUME 97.3 fl (80-96); MEAN PLT VOLUME 9.4 fl (7.5-11.1); PLATELET COUNT 114 K/MM3 (134-434); RBC 4.63 M/mm3 (4.00-5.60); RDW 13.1 % (11.9-15.9)
[2017-12-23] MEDS: PRENATAL VITAMINS W/ FOLIC ACID TABLET (FP) PO SCH (10:17)
[2017-12-23] MEDS: RANITIDINE HCL 150 MG TABLET (FP) PO SCH ×2 (10:17→22:22)
[2017-12-23] MEDS: METOPROLOL TARTRATE 25 MG TABLET (FP) PO SCH ×2 (10:17→22:23)
[2017-12-23 10:35] LABS: ALBUMIN 4.5 g/dl (3.4-5.0); ANION GAP 11 (8-16); BLOOD UREA NITROGEN 8 mg/dL (7-18); CHLORIDE 95 mmol/L (98-107); CO2 33 mmol/L (21-32); GLUCOSE,RANDOM 134 mg/dL (74-106); SGPT/ALT 63 U/L (12-78); SODIUM 139 mmol/L (136-145)
[2017-12-23 10:38] LABS: ALK PHOS 101 U/L (45-117); BILIRUBIN,TOTAL 1.2 mg/dL (0.2-1.0); CREATININE 0.9 mg/dL (0.7-1.3); SGOT/AST 172 U/L (15-37); TOT PROT 8.4 g/dl (6.4-8.2)
[2017-12-23 10:58] LABS: POTASSIUM 2.8 mmol/L (3.5-5.1)
--- NOTE | 2017-12-23 11:16 | PN ---
[facility] CIWA - CIWA Score Nausea/Vomitin-No Nausea/No Vomiting Muscle Tremors: 3 Anxiety: 4-Mod. Anxious/Guarded Agitation: 1-Slight > Activity Paroxysmal Sweats: 3 Orientation: 0-Oriented Tacttile Disturbances: 2-Mild Itch/Numbness/Burn Auditory Disturbances: 2-Mild Harshness/Frighten Visual Disturbances: 2-Mild Sensitivity Headache: 0-None Present CIWA-Ar Total Score: 17 S Progress Note (SOAP) Subjective: Sweating, Tremors, Anxiety, Interrupted Sleep, Poor Appetite. Objective: PATIENT A & O X 3, OBSERVED AMBULATING ON UNIT. NO ACUTE DISTRESS. 12/23/17 11:13 Vital Signs Temperature 97.5 F L 12/23/17 10:50 Pulse Rate 78 12/23/17 10:50 Respiratory Rate 18 12/23/17 10:50 Blood Pressure 115/75 12/23/17 10:50 O2 Sat by Pulse Oximetry (%) Laboratory Tests 12/22/17 12/23/17 12/23/17 07:30 06:00 06:00 WBC 8.0 RBC 4.63 Hgb 15.5 Hct 45.1 MCV 97.3 H MCH 33.4 MCHC 34.3 RDW 13.1 Plt Count 114 L D MPV 9.4 Sodium 139 Potassium 2.8 L* D Chloride 95 L Carbon Dioxide 33 H D Anion Gap 11 BUN 8 Creatinine 0.9 Creat Clearance w eGFR > 60 Random Glucose 134 H D Calcium 9.0 Total Bilirubin 1.2 H AST 172 H D ALT 63 Alkaline Phosphatase 101 Total Protein 8.4 H Albumin 4.5 D Urine Color Jessy Urine Appearance Cloudy Urine pH 6.0 Ur Specific [place] 1.032 Urine Protein 2+ H Urine Glucose (UA) Negative Urine Ketones Negative Urine Blood 1+ H Urine Nitrite Negative Urine Bilirubin 2.0 Urine Urobilinogen 4.0 e.u/dl Ur Leukocyte Esterase Negative Urine WBC (Auto) 7 Urine RBC (Auto) 4 Hyaline Casts 9 Urine Mucus Many LABS NOTED. RPR RESULT PENDING. 12/23/17 11:15 Assessment: 12/23/17 11:14 WITHDRAWAL SYMPTOMS. HYPOKALEMIA. HYPERTENSION. Plan: CONTINUE DETOX. INCREASE DAILY PO FLUID INTAKE. K-DUR, 40 MEQ PO X 1 NOW, THEN 20 MEQ PO BID. RE-CHECK K AND AST ON 12/25/2017 FOR ABNORMAL ADMISSION LEVELS.
[2017-12-23] MEDS ORDERED: POTASSIUM CHLORIDE TABS 20 MEQ TABLET.ER (FP) PO ONE (12:30)
[2017-12-23] MEDS: LOPERAMIDE HCL 2 MG CAPSULE PO PRN ×2 (14:34→21:01)
--- NOTE | 2017-12-23 15:07 | CONSULT ---
[facility] Psychiatric Consult - Data Date of interview: 12/23/17 Admission source: [facility] Identifying data: Readmission to [facility] for this 57 y/o male seeking detox treatment at [address] [place] [address] for alcohol dependence.Patient is without children, domiciled,unemployed,disabled and supported on [facility] benefits. Substance Abuse History: Confirmed by patient in this session.Details in current [facility] report : Smoking history: Former smoker. Have you smoked in the past 12 months: No. Aproximately how many cigarettes per day: 0. If you are a former smoker, when did you quit?: 61/2 years ago. Hx Chewing Tobacco Use: No. Initiated information on smoking cessation: No. - Substance & Tx. History. Hx Alcohol Use: Yes. Hx Substance Use: Yes. Substance Use Type: Alcohol, Tranquilizers. Hx Substance Use Treatment: Yes (11/[facility] - Substances Abused. Alcohol-vodka/beer. Route: Oral. Frequency: Daily. Amount used: 3-5 pts./1-6 pk. Age of first use: 16. Date of Last Use: 12/22/17 Medical History: No changes in medical profile since encounter of 10/2017 : History of seizure disorder,hypertension,DVT in right leg tendinitis in left leg ,injury to left biceps and left rotator cuff (self-report),herniated discs, chronic lumbar pain,dyslipidemia and past umbilical herniorraphy.Patient underwent neurosurgery (craniotomy) in 2014 for cerebral hemorrhage. Psychiatric History: History of two psychiatric hospitalizations in 2016 ( [facility]).Diagnosed with MDD.Patient is prescribed olanzapine 10 mg/hs + trazodone 100 mg/hs.He is followed at the [facility] OPD clinic ([facility]).Mr Josehp endorses a remote history of one suicide attempt via overdose (adolescence). Physical/Sexual Abuse/Trauma History: Patient denies history of abuse. Additional Comment: Urine Drug Screen Results: MET-Methamphetamine, BZO- Benzodiazepines.Noted. Mental Status Exam - Mental Status Exam Alert and Oriented to: Time, Place, Person Cognitive Function: Good Patient Appearance: Well Groomed Mood: Withdrawn, Anxious Affect: Mood Congruent Patient Behavior: Fatigued, Appropriate, Cooperative Speech Pattern: Clear, Appropriate Voice Loudness: Normal Thought Process: Intact, Goal Oriented Thought Disorder: Not Present Hallucinations: Denies Suicidal Ideation: Denies Homicidal Ideation: Denies Insight/Judgement: Poor Sleep: Poorly, Difficulty falling asleep Appetite: Good Muscle strength/Tone: Normal Gait/Station: Other (moves around with walker) Psychiatric Findings - Problem List ([place] 1, 2,3) (1) Alcohol dependence with uncomplicated withdrawal Current Visit: Yes Status: Acute (2) Nicotine dependence Current Visit: Yes Status: Acute Qualifiers: Nicotine product type: cigarettes Substance use status: in withdrawal Qualified Code(s): F17.213 - Nicotine dependence, cigarettes, with withdrawal (3) Depressive disorder Current Visit: Yes Status: Chronic (4) Insomnia Current Visit: Yes Status: Acute - Initial Treatment Plan Initial Treatment Plan: Psychoeducation.Sleep hygiene.Detoxification in progress.Medications : trazodone 50 mg po hs + olanzapine 10 mg po hs.Side effects/benefits of both drugs are discussed with the patient.Mr Roa agrees with this careplan.Observation.
[2017-12-23] MEDS: POTASSIUM CHLORIDE TABS 20 MEQ TABLET.ER (FP) PO SCH (17:22)
--- NOTE | 2017-12-23 19:52 | EKG ---
Test Reason : Blood Pressure : / mmHG Vent. Rate : 085 BPM Atrial Rate : 085 BPM P-R Int : 180 ms QRS Dur : 104 ms QT Int : 372 ms P-R-T Axes : 049 018 047 degrees QTc Int : 442 ms NORMAL SINUS RHYTHM NORMAL ECG WHEN COMPARED WITH ECG OF 19-NOV-2017 22:10, NONSPECIFIC T WAVE ABNORMALITY NOW EVIDENT IN ANTEROLATERAL LEADS Confirmed by CARO STORY MD ([id number]) on 12/23/2017 7:52:15 PM Referred By: Confirmed By:CARO STORY MD
[2017-12-23] MEDS: traZODone HCL 50 MG TABLET (FP) PO SCH (22:22)
[2017-12-23] MEDS: OLANZapine 10 MG TABLET PO SCH (22:22)
[2017-12-23] MEDS: THIAMINE HCL 100 MG TABLET (FP) PO SCH (22:22)
[2017-12-24] MEDS: chlordiazePOXIDE HCL 25 MG CAPSULE PO SCH ×3 (05:59→16:56)
[2017-12-24] MEDS: METOPROLOL TARTRATE 25 MG TABLET (FP) PO SCH ×2 (10:28→22:25)
[2017-12-24] MEDS: PRENATAL VITAMINS W/ FOLIC ACID TABLET (FP) PO SCH (10:28)
[2017-12-24] MEDS: RANITIDINE HCL 150 MG TABLET (FP) PO SCH ×2 (10:29→22:25)
[2017-12-24] MEDS: POTASSIUM CHLORIDE TABS 20 MEQ TABLET.ER (FP) PO SCH ×2 (10:29→17:00)
--- NOTE | 2017-12-24 12:43 | PN ---
[facility] CIWA - CIWA Score Nausea/Vomitin-No Nausea/No Vomiting Muscle Tremors: 3 Anxiety: 4-Mod. Anxious/Guarded Agitation: 3 Paroxysmal Sweats: 2 Orientation: 0-Oriented Tacttile Disturbances: 2-Mild Itch/Numbness/Burn Auditory Disturbances: 0-None Visual Disturbances: 2-Mild Sensitivity Headache: 0-None Present CIWA-Ar Total Score: 16 BHS Progress Note (SOAP) Subjective: Fatigue, Tremors, Anxious. Objective: PATIENT A & O X 3. NO ACUTE DISTRESS. 12/24/17 12:43 Vital Signs Temperature 98.4 F 12/24/17 09:21 Pulse Rate 90 12/24/17 09:21 Respiratory Rate 20 12/24/17 09:21 Blood Pressure 114/67 12/24/17 09:21 O2 Sat by Pulse Oximetry (%) Laboratory Tests 12/22/17 12/23/17 12/23/17 07:30 06:00 06:00 WBC 8.0 RBC 4.63 Hgb 15.5 Hct 45.1 MCV 97.3 H MCH 33.4 MCHC 34.3 RDW 13.1 Plt Count 114 L D MPV 9.4 Sodium 139 Potassium 2.8 L* D Chloride 95 L Carbon Dioxide 33 H D Anion Gap 11 BUN 8 Creatinine 0.9 Creat Clearance w eGFR > 60 Random Glucose 134 H D Calcium 9.0 Total Bilirubin 1.2 H AST 172 H D ALT 63 Alkaline Phosphatase 101 Total Protein 8.4 H Albumin 4.5 D Urine Color Jessy Urine Appearance Cloudy Urine pH 6.0 Ur Specific [place] 1.032 Urine Protein 2+ H Urine Glucose (UA) Negative Urine Ketones Negative Urine Blood 1+ H Urine Nitrite Negative Urine Bilirubin 2.0 Urine Urobilinogen 4.0 e.u/dl Ur Leukocyte Esterase Negative Urine WBC (Auto) 7 Urine RBC (Auto) 4 Hyaline Casts 9 Urine Mucus Many RPR Titer 12/23/17 06:00 WBC RBC Hgb Hct MCV MCH MCHC RDW Plt Count MPV Sodium Potassium Chloride Carbon Dioxide Anion Gap BUN Creatinine Creat Clearance w eGFR Random Glucose Calcium Total Bilirubin AST ALT Alkaline Phosphatase Total Protein Albumin Urine Color Urine Appearance Urine pH Ur Specific [place] Urine Protein Urine Glucose (UA) Urine Ketones Urine Blood Urine Nitrite Urine Bilirubin Urine Urobilinogen Ur Leukocyte Esterase Urine WBC (Auto) Urine RBC (Auto) Hyaline Casts Urine Mucus RPR Titer Nonreactive LABS NOTED. Assessment: 12/24/17 12:43 WITHDRAWAL SYMPTOMS. HYPOKALEMIA. 12/24/17 12:45 Plan: CONTINUE DETOX. CONTINUE K-DUR. INCREASE DAILY PO FLUID INTAKE. RE-CHECK K, AST LEVELS TOMORROW AM.
[2017-12-24] MEDS: THIAMINE HCL 100 MG TABLET (FP) PO SCH (22:25)
[2017-12-24] MEDS: chlordiazePOXIDE 5 MG CAPSULE PO SCH (22:25)
[2017-12-24] MEDS: OLANZapine 10 MG TABLET PO SCH (22:26)
[2017-12-24] MEDS: traZODone HCL 50 MG TABLET (FP) PO SCH (22:26)
[2017-12-25] MEDS: chlordiazePOXIDE 5 MG CAPSULE PO SCH ×3 (05:58→17:18)
[2017-12-25] MEDS: POTASSIUM CHLORIDE TABS 20 MEQ TABLET.ER (FP) PO SCH ×2 (10:19→17:18)
[2017-12-25] MEDS: METOPROLOL TARTRATE 25 MG TABLET (FP) PO SCH ×2 (10:19→22:24)
[2017-12-25] MEDS: RANITIDINE HCL 150 MG TABLET (FP) PO SCH ×2 (10:19→22:25)
[2017-12-25] MEDS: PRENATAL VITAMINS W/ FOLIC ACID TABLET (FP) PO SCH (10:19)
[2017-12-25 10:50] LABS: POTASSIUM 3.3 mmol/L (3.5-5.1)
--- NOTE | 2017-12-25 12:44 | PN ---
BHS Progress Note (SOAP) Subjective: Fatigue, Sweating, Anxious, Body Aches. Objective: PATIENT A & O X 3. NO ACUTE DISTRESS. 12/25/17 12:43 Vital Signs Temperature 97.4 F L 12/25/17 09:28 Pulse Rate 79 12/25/17 09:28 Respiratory Rate 20 12/25/17 09:28 Blood Pressure 109/67 12/25/17 09:28 O2 Sat by Pulse Oximetry (%) Laboratory Tests 12/22/17 12/23/17 12/23/17 07:30 06:00 06:00 WBC 8.0 RBC 4.63 Hgb 15.5 Hct 45.1 MCV 97.3 H MCH 33.4 MCHC 34.3 RDW 13.1 Plt Count 114 L D MPV 9.4 Sodium 139 Potassium 2.8 L* D Chloride 95 L Carbon Dioxide 33 H D Anion Gap 11 BUN 8 Creatinine 0.9 Creat Clearance w eGFR > 60 Random Glucose 134 H D Calcium 9.0 Total Bilirubin 1.2 H AST 172 H D ALT 63 Alkaline Phosphatase 101 Total Protein 8.4 H Albumin 4.5 D Urine Color Jessy Urine Appearance Cloudy Urine pH 6.0 Ur Specific [place] 1.032 Urine Protein 2+ H Urine Glucose (UA) Negative Urine Ketones Negative Urine Blood 1+ H Urine Nitrite Negative Urine Bilirubin 2.0 Urine Urobilinogen 4.0 e.u/dl Ur Leukocyte Esterase Negative Urine WBC (Auto) 7 Urine RBC (Auto) 4 Hyaline Casts 9 Urine Mucus Many RPR Titer 12/23/17 12/25/17 06:00 07:30 WBC RBC Hgb Hct MCV MCH MCHC RDW Plt Count MPV Sodium Potassium 3.3 L Chloride Carbon Dioxide Anion Gap BUN Creatinine Creat Clearance w eGFR Random Glucose Calcium Total Bilirubin AST 114 H D ALT Alkaline Phosphatase Total Protein Albumin Urine Color Urine Appearance Urine pH Ur Specific [place] Urine Protein Urine Glucose (UA) Urine Ketones Urine Blood Urine Nitrite Urine Bilirubin Urine Urobilinogen Ur Leukocyte Esterase Urine WBC (Auto) Urine RBC (Auto) Hyaline Casts Urine Mucus RPR Titer Nonreactive LABS NOTED. Assessment: 12/25/17 12:43 WITHDRAWAL SYMPTOMS. Plan: CONTINUE DETOX.
[2017-12-25] MEDS: chlordiazePOXIDE HCL 10 MG CAPSULE PO SCH (22:24)
[2017-12-25] MEDS: THIAMINE HCL 100 MG TABLET (FP) PO SCH (22:24)
[2017-12-25] MEDS: OLANZapine 10 MG TABLET PO SCH (22:25)
[2017-12-25] MEDS: traZODone HCL 50 MG TABLET (FP) PO SCH (22:25)
[2017-12-26] MEDS: chlordiazePOXIDE HCL 10 MG CAPSULE PO SCH ×3 (05:20→16:44)
[2017-12-26] MEDS: POTASSIUM CHLORIDE TABS 20 MEQ TABLET.ER (FP) PO SCH ×2 (10:53→17:17)
[2017-12-26] MEDS: METOPROLOL TARTRATE 25 MG TABLET (FP) PO SCH ×2 (10:53→22:25)
[2017-12-26] MEDS: PRENATAL VITAMINS W/ FOLIC ACID TABLET (FP) PO SCH (10:53)
[2017-12-26] MEDS: RANITIDINE HCL 150 MG TABLET (FP) PO SCH ×2 (10:53→22:25)
--- NOTE | 2017-12-26 16:31 | PN ---
BHS Progress Note (SOAP) Subjective: Sweating, Anxious, Body Aches, Interrupted Sleep. Objective: PATIENT A & O X 3, OBSERVED AMBULATING ON UNIT. NO ACUTE DISTRESS. 12/26/17 16:29 Vital Signs Temperature 98.0 F 12/26/17 13:25 Pulse Rate 65 12/26/17 13:25 Respiratory Rate 18 12/26/17 13:25 Blood Pressure 117/70 12/26/17 13:25 O2 Sat by Pulse Oximetry (%) Laboratory Tests 12/22/17 12/23/17 12/23/17 07:30 06:00 06:00 WBC 8.0 RBC 4.63 Hgb 15.5 Hct 45.1 MCV 97.3 H MCH 33.4 MCHC 34.3 RDW 13.1 Plt Count 114 L D MPV 9.4 Sodium 139 Potassium 2.8 L* D Chloride 95 L Carbon Dioxide 33 H D Anion Gap 11 BUN 8 Creatinine 0.9 Creat Clearance w eGFR > 60 Random Glucose 134 H D Calcium 9.0 Total Bilirubin 1.2 H AST 172 H D ALT 63 Alkaline Phosphatase 101 Total Protein 8.4 H Albumin 4.5 D Urine Color Jessy Urine Appearance Cloudy Urine pH 6.0 Ur Specific [place] 1.032 Urine Protein 2+ H Urine Glucose (UA) Negative Urine Ketones Negative Urine Blood 1+ H Urine Nitrite Negative Urine Bilirubin 2.0 Urine Urobilinogen 4.0 e.u/dl Ur Leukocyte Esterase Negative Urine WBC (Auto) 7 Urine RBC (Auto) 4 Hyaline Casts 9 Urine Mucus Many RPR Titer 12/23/17 12/25/17 06:00 07:30 WBC RBC Hgb Hct MCV MCH MCHC RDW Plt Count MPV Sodium Potassium 3.3 L Chloride Carbon Dioxide Anion Gap BUN Creatinine Creat Clearance w eGFR Random Glucose Calcium Total Bilirubin AST 114 H D ALT Alkaline Phosphatase Total Protein Albumin Urine Color Urine Appearance Urine pH Ur Specific [place] Urine Protein Urine Glucose (UA) Urine Ketones Urine Blood Urine Nitrite Urine Bilirubin Urine Urobilinogen Ur Leukocyte Esterase Urine WBC (Auto) Urine RBC (Auto) Hyaline Casts Urine Mucus RPR Titer Nonreactive LABS NOTED. Assessment: 12/26/17 16:29 WITHDRAWAL SYMPTOMS. Plan: CONTINUE DETOX. DUE TO PRESENCE/SEVERITY LEVEL OF LINGERING DETOX SYMPTOMS AND DIFFICULTIES IN AMBULATION, PATIENT PERMITTED TO REMAIN ON UNIT UNTIL 12/28/2017, AT WHICH TIME HE WILL BE MET BY HOME HEALTH AIDE HE PREPARES FOR OUTPATIENT AFTERCARE PROGRAM.
[2017-12-26] MEDS: traZODone HCL 50 MG TABLET (FP) PO SCH (22:25)
[2017-12-26] MEDS: OLANZapine 10 MG TABLET PO SCH (22:25)
[2017-12-26] MEDS: THIAMINE HCL 100 MG TABLET (FP) PO SCH (22:25)
[2017-12-26] MEDS: MELATONIN 5 MG TABLETS PO PRN (22:26)
[2017-12-27] MEDS: POTASSIUM CHLORIDE TABS 20 MEQ TABLET.ER (FP) PO SCH ×2 (10:09→17:14)
[2017-12-27] MEDS: RANITIDINE HCL 150 MG TABLET (FP) PO SCH ×2 (10:09→22:33)
[2017-12-27] MEDS: PRENATAL VITAMINS W/ FOLIC ACID TABLET (FP) PO SCH (10:09)
[2017-12-27] MEDS: METOPROLOL TARTRATE 25 MG TABLET (FP) PO SCH ×2 (10:09→22:33)
--- NOTE | 2017-12-27 15:18 | PN ---
BHS Progress Note (SOAP) Subjective: ALERT O X 3. ROUNDED ON PT WHILE IN BED. SLIGHT TREMORS, ANXIETY. DETOX TAPER COMPLETED. PT REFERRED TO NEXT LEVEL OF CARE ARRANGEMENT IN THE MORNING(SEE NOTE OF 12/26/17). Objective: 12/27/17 15:17 Vital Signs 12/27/17 12/27/17 09:33 13:18 Temperature 95.8 F L 97.7 F Pulse Rate 69 69 Respiratory 18 18 Rate Blood Pressure 99/69 115/73 Laboratory Tests 12/22/17 12/23/17 12/23/17 07:30 06:00 06:00 WBC 8.0 RBC 4.63 Hgb 15.5 Hct 45.1 MCV 97.3 H MCH 33.4 MCHC 34.3 RDW 13.1 Plt Count 114 L D MPV 9.4 Sodium 139 Potassium 2.8 L* D Chloride 95 L Carbon Dioxide 33 H D Anion Gap 11 BUN 8 Creatinine 0.9 Creat Clearance w eGFR > 60 Random Glucose 134 H D Calcium 9.0 Total Bilirubin 1.2 H AST 172 H D ALT 63 Alkaline Phosphatase 101 Total Protein 8.4 H Albumin 4.5 D Urine Color Jessy Urine Appearance Cloudy Urine pH 6.0 Ur Specific [place] 1.032 Urine Protein 2+ H Urine Glucose (UA) Negative Urine Ketones Negative Urine Blood 1+ H Urine Nitrite Negative Urine Bilirubin 2.0 Urine Urobilinogen 4.0 e.u/dl Ur Leukocyte Esterase Negative Urine WBC (Auto) 7 Urine RBC (Auto) 4 Hyaline Casts 9 Urine Mucus Many RPR Titer 12/23/17 12/25/17 06:00 07:30 WBC RBC Hgb Hct MCV MCH MCHC RDW Plt Count MPV Sodium Potassium 3.3 L Chloride Carbon Dioxide Anion Gap BUN Creatinine Creat Clearance w eGFR Random Glucose Calcium Total Bilirubin AST 114 H D ALT Alkaline Phosphatase Total Protein Albumin Urine Color Urine Appearance Urine pH Ur Specific [place] Urine Protein Urine Glucose (UA) Urine Ketones Urine Blood Urine Nitrite Urine Bilirubin Urine Urobilinogen Ur Leukocyte Esterase Urine WBC (Auto) Urine RBC (Auto) Hyaline Casts Urine Mucus RPR Titer Nonreactive Assessment: 12/27/17 15:18 WITHDRAWAL SX Plan: MONITOR PT TO FOLLOW UP WITH AFTERCARE IN A.M.
[2017-12-27] MEDS: THIAMINE HCL 100 MG TABLET (FP) PO SCH (22:33)
[2017-12-27] MEDS: traZODone HCL 50 MG TABLET (FP) PO SCH (22:33)
[2017-12-27] MEDS: OLANZapine 10 MG TABLET PO SCH (22:33)
[2017-12-28] MEDS: MELATONIN 5 MG TABLETS PO PRN (00:33)
[2017-12-28] MEDS: RANITIDINE HCL 150 MG TABLET (FP) PO SCH (09:05)
[2017-12-28] MEDS: METOPROLOL TARTRATE 25 MG TABLET (FP) PO SCH (09:05)
[2017-12-28] MEDS: PRENATAL VITAMINS W/ FOLIC ACID TABLET (FP) PO SCH (09:05)
[2017-12-28] MEDS: POTASSIUM CHLORIDE TABS 20 MEQ TABLET.ER (FP) PO SCH (09:05)
[2017-12-28 09:35] VITALS: BP 108/75; PULSE 85; TEMP 98.4
--- NOTE | 2017-12-28 09:56 | PN ---
BHS Progress Note (SOAP) Subjective: DETOX COMPLETED. ALERT O X 3. PT WILL FOLLOW UP WITH MEDICAL MANAGEMENT OF COMORBID CONDITIONS WITH PMD DR CARITO SALAZAR AT [facility] ON [address] [facility]. PT REPORTS HE HAS ALL HIS MEDS AT HOME. Objective: 12/28/17 09:49 Vital Signs Temperature 98.4 F 12/28/17 09:33 Pulse Rate 85 12/28/17 09:33 Respiratory Rate 20 12/28/17 09:33 Blood Pressure 108/75 12/28/17 09:33 O2 Sat by Pulse Oximetry (%) Laboratory Tests 12/22/17 12/23/17 12/23/17 07:30 06:00 06:00 WBC 8.0 RBC 4.63 Hgb 15.5 Hct 45.1 MCV 97.3 H MCH 33.4 MCHC 34.3 RDW 13.1 Plt Count 114 L D MPV 9.4 Sodium 139 Potassium 2.8 L* D Chloride 95 L Carbon Dioxide 33 H D Anion Gap 11 BUN 8 Creatinine 0.9 Creat Clearance w eGFR > 60 Random Glucose 134 H D Calcium 9.0 Total Bilirubin 1.2 H AST 172 H D ALT 63 Alkaline Phosphatase 101 Total Protein 8.4 H Albumin 4.5 D Urine Color Jessy Urine Appearance Cloudy Urine pH 6.0 Ur Specific [place] 1.032 Urine Protein 2+ H Urine Glucose (UA) Negative Urine Ketones Negative Urine Blood 1+ H Urine Nitrite Negative Urine Bilirubin 2.0 Urine Urobilinogen 4.0 e.u/dl Ur Leukocyte Esterase Negative Urine WBC (Auto) 7 Urine RBC (Auto) 4 Hyaline Casts 9 Urine Mucus Many RPR Titer 12/23/17 12/25/17 06:00 07:30 WBC RBC Hgb Hct MCV MCH MCHC RDW Plt Count MPV Sodium Potassium 3.3 L Chloride Carbon Dioxide Anion Gap BUN Creatinine Creat Clearance w eGFR Random Glucose Calcium Total Bilirubin AST 114 H D ALT Alkaline Phosphatase Total Protein Albumin Urine Color Urine Appearance Urine pH Ur Specific [place] Urine Protein Urine Glucose (UA) Urine Ketones Urine Blood Urine Nitrite Urine Bilirubin Urine Urobilinogen Ur Leukocyte Esterase Urine WBC (Auto) Urine RBC (Auto) Hyaline Casts Urine Mucus RPR Titer Nonreactive Assessment: 12/28/17 09:56 MEDICALLY STABLE Plan: D/C PT TODAY F/U AT [facility] FOR AFTERCARE.
--- NOTE | 2017-12-28 10:05 | DS ---
[facility] Detox Discharge Summary Admission Date: 12/22/17 Discharge Date: 12/28/17 - History Present History: Alcohol Dependence Additional Comments: DETOX COMPLETED. ALERT O X 3. NAD. PT STATES HE WILL F/U WITH HIS PCP/PMD DR. CARITO SALAZAR AT [place], [place] FOR MEDICAL MANAGEMENT. Pertinent Past History: PLEASE SEE DX BELOW - Physical Exam Results Vital Signs: Vital Signs Temperature 98.4 F 12/28/17 09:33 Pulse Rate 85 12/28/17 09:33 Respiratory Rate 20 12/28/17 09:33 Blood Pressure 108/75 12/28/17 09:33 O2 Sat by Pulse Oximetry (%) Pertinent Admission Physical Exam Findings: WITHDRAWAL SX Laboratory Tests 12/22/17 12/23/17 12/23/17 07:30 06:00 06:00 WBC 8.0 RBC 4.63 Hgb 15.5 Hct 45.1 MCV 97.3 H MCH 33.4 MCHC 34.3 RDW 13.1 Plt Count 114 L D MPV 9.4 Sodium 139 Potassium 2.8 L* D Chloride 95 L Carbon Dioxide 33 H D Anion Gap 11 BUN 8 Creatinine 0.9 Creat Clearance w eGFR > 60 Random Glucose 134 H D Calcium 9.0 Total Bilirubin 1.2 H AST 172 H D ALT 63 Alkaline Phosphatase 101 Total Protein 8.4 H Albumin 4.5 D Urine Color Jessy Urine Appearance Cloudy Urine pH 6.0 Ur Specific [place] 1.032 Urine Protein 2+ H Urine Glucose (UA) Negative Urine Ketones Negative Urine Blood 1+ H Urine Nitrite Negative Urine Bilirubin 2.0 Urine Urobilinogen 4.0 e.u/dl Ur Leukocyte Esterase Negative Urine WBC (Auto) 7 Urine RBC (Auto) 4 Hyaline Casts 9 Urine Mucus Many RPR Titer 12/23/17 12/25/17 06:00 07:30 WBC RBC Hgb Hct MCV MCH MCHC RDW Plt Count MPV Sodium Potassium 3.3 L Chloride Carbon Dioxide Anion Gap BUN Creatinine Creat Clearance w eGFR Random Glucose Calcium Total Bilirubin AST 114 H D ALT Alkaline Phosphatase Total Protein Albumin Urine Color Urine Appearance Urine pH Ur Specific [place] Urine Protein Urine Glucose (UA) Urine Ketones Urine Blood Urine Nitrite Urine Bilirubin Urine Urobilinogen Ur Leukocyte Esterase Urine WBC (Auto) Urine RBC (Auto) Hyaline Casts Urine Mucus RPR Titer Nonreactive - Treatment Hospital Course: Detox Protocol Followed, Detoxed Safely, Responded well, Discharged Condition Good, Rehab Referral Accepted Patient has Accepted a Rehab Referral to: [facility] - Medication Discharge Medications: Ambulatory Orders Metoprolol Succinate [Toprol Xl] 50 mg PO DAILY 11/19/17 Potassium Chloride [K-Dur -] 20 meq PO DAILY #5 tablet.er 11/23/17 Ranitidine [Zantac -] 150 mg PO DAILY #30 tablet 11/23/17 Olanzapine [ZyPREXA -] 10 mg PO HS #30 tablet 12/26/17 traZODone HCL [Desyrel -] 50 mg PO HS #30 tablet 12/26/17 - Diagnosis (1) Alcohol dependence with uncomplicated withdrawal Current Visit: Yes Status: Acute (2) Nicotine dependence Current Visit: Yes Status: Acute Qualifiers: Nicotine product type: cigarettes Substance use status: in withdrawal Qualified Code(s): F17.213 - Nicotine dependence, cigarettes, with withdrawal (3) GERD (gastroesophageal reflux disease) Current Visit: Yes Status: Chronic Qualifiers: Esophagitis presence: esophagitis presence not specified Qualified Code(s) : K21.9 - Gastro-esophageal reflux disease without esophagitis (4) Hypertension Current Visit: Yes Status: Chronic Qualifiers: Hypertension type: essential hypertension (5) Neuropathy Current Visit: Yes Status: Chronic (6) Walker as ambulation aid Current Visit: Yes Status: Chronic (7) Hypokalemia Current Visit: Yes Status: Acute - AMA Did Patient Leave Against Medical Advice: No
== END 2017-12-28 10:10 | disposition home or self-care (01) | DRG 897 ==
LOC: YASAS 10:45 → Y3N 16:31
PROVIDERS: ADMIT Internal Medicine; ATTEND Internal Medicine
PROC: HZ2ZZZZ Detoxification Services for Substance Abuse Treatment (ICD-10-PCS; principal; 2017-12-22)
DX: F10.230 Alcohol dependence with withdrawal, uncomplicated (principal); F17.210 Nicotine dependence, cigarettes, uncomplicated; K21.9 Gastro-esophageal reflux disease without esophagitis; I10 Essential (primary) hypertension; E87.6 Hypokalemia; E86.0 Dehydration; R26.89 Other abnormalities of gait and mobility; Z99.89 Dependence on other enabling machines and devices; F39 Unspecified mood [affective] disorder; Z91.5 Personal history of self-harm
CPT/HCPCS: 36415; 80053; 81003; 81015; 84132; 84450; 85027; 86593; 93005; 93010

== ENCOUNTER 2017-12-22 11:25 | Emergency (ER) | payer OTHER ==
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
[2017-12-22 11:46] VITALS: BP 130/90; PULSE 95; TEMP 97.8; BMI 30.8
--- NOTE | 2017-12-22 11:59 | PDOC ---
History of Present Illness - General Chief Complaint: Injury Stated Complaint: Alcohol intoxication Time Seen by Provider: 12/22/17 11:30 - History of Present Illness Initial Comments: 12/22/17 11:59 The patient is a 57 year old male with a history of HLD, DVT no longer on anticoagulation due to a prior cerbrovascular hemorrhage, who presents for evaluation following a fall. The patient reports that he was being evaluated for detox for alcohol abuse at [facility] when he bumped into another patient and fell to the ground with head trauma without LOC prompting his presentation to the ED for evaluation. The patient denies any symptoms or pain at this time and otherwise denies fevers, chills, SOB, chest pain, nausea, vomiting, abdominal pain, or changes with urination or bowel movements. The patient reports that his last drink was earlier today. Past History - Past Medical History Allergies/Adverse Reactions: Allergies Allergy/AdvReac Type Severity Reaction Status Date / Time No Known Allergies Allergy Verified 11/19/17 20:29 Home Medications: Ambulatory Orders Metoprolol Succinate [Toprol Xl] 50 mg PO DAILY 11/19/17 Olanzapine 10 mg PO DAILY 11/19/17 Trazodone HCl 100 mg PO HS 11/19/17 Potassium Chloride [K-Dur -] 20 meq PO DAILY #5 tablet.er 11/23/17 Ranitidine [Zantac -] 150 mg PO DAILY #30 tablet 11/23/17 Anemia: No Asthma: No Cancer: No Cardiac Disorders: No CVA: No COPD: No CHF: No Dementia: No Diabetes: No GI Disorders: No Disorders: No HTN: No Hypercholesterolemia: Yes (on medication) Kidney Stones: No Liver Disease: No Seizures: No Thyroid Disease: No - Surgical History Abdominal Surgery: Yes (Umbilical hernia repair x 2 many years ago) Appendectomy: No Cardiac Surgery: No Cholecystectomy: No Lung Surgery: No Neurologic Surgery: Yes (S/P CRANIOTOMY FOR BLEEDING IN 02/05 from taking Xarelto) Orthopedic Surgery: Yes - Reproductive History Testicular Surgery: No - Suicide/Smoking/Psychosocial Hx Smoking History: Never smoked Have you smoked in the past 12 months: No Number of Cigarettes Smoked Daily: 0 If you are a former smoker, when did you quit?: 61/2 years ago Information on smoking cessation initiated: No 'Breaking Loose' booklet given: 05/05/16 (enforcement) Hx Alcohol Use: Yes Drug/Substance Use Hx: Yes Substance Use Type: Alcohol Hx Substance Use Treatment: Yes ([facility] [place]) Review of Systems - Review of Systems Comments:: 12/22/17 12:01 Constitutional: No fevers, chills, fatigue, malaise HEENT: No Rhinorrhea, nasal congestion, visual changes Cardiovascular: No chest pain, syncope, palpitations, lightheadedness Respiratory: No Cough, SOB, Hemoptysis, Gastrointestinal: No Abdominal pain, Nausea, Vomiting, Constipation, Diarrhea, Melena Genitourinary: No Dysuria, Frequency, Urgency, Hesitancy, Hematuria, Flank pain Musculoskeletal: No Myalgia, arthralgia Skin: No rashes, itching, bruising, pallor Neurologic: No Headache, Dizziness, Numbness, Weakness, or Tingling Psychiatric: No Hallucinations. No SI or HI *Physical Exam - Vital Signs Last Vital Signs Temp Pulse Resp BP Pulse Ox 97.8 F 95 H 18 130/90 95 12/22/17 11:43 12/22/17 11:43 12/22/17 11:43 12/22/17 11:43 12/22/17 11:43 - Physical Exam Comments: 12/22/17 12:02 General Appearance: Nourished. No Apparent Distress HEENT: EOMI, SHAVON. No Pharyngeal Erythema, Tonsillar Exudate, Tonsillar Erythema Neck: No Cervical Lymphadenopathy Respiratory/Chest: Lungs Clear, Normal Breath Sounds. No Crackles, Rales, Rhonchi, Wheezing Cardiovascular: Regular Rhythm, Regular Rate. No Murmur, Gallops, Rubs Gastrointestinal/Abdominal: Normal Bowel Sounds, Soft. No Guarding, Rebound, Tenderness Musculoskeletal: No CVA Tenderness Extremity: Normal Capillary Refill Integumentary: Normal Color, Dry, Warm Neurologic: blacktop spreader II-XII NML intact, Fully Oriented, Alert, Normal Mood/Affect, Normal Response, ED Treatment Course - RADIOLOGY Radiology Studies Ordered: Category Date Time Status HEAD CT WITHOUT CONTRAST [CT] Stat CT Scan 12/22/17 11:43 Ordered Medical Decision Making - Medical Decision Making 12/22/17 12:03 The patient is a 57 year old male with a history of HLD, DVT no longer on anticoagulation due to a prior cerbrovascular hemorrhage, who presents for evaluation following a fall. The patient appears clinically well on exam at this time. We will obtain a head CT to evaluate for any intracranial process. We will continue to monitor and reassess. 12/22/17 13:[address] did not demonstrate any acute pathology as read by our radiologist. The patient continues to appear clinically well on exam. We are comfortable discharging the patient back to [facility] at this time with primary care provider follow up. We discussed the results, plan and return precautions with the patient who voiced understanding and is agreeable with the plan. *DC/Admit/Observation/Transfer Diagnosis at time of Disposition: Fall Qualifiers: Encounter type: initial encounter Qualified Code(s): W19.XXXA - Unspecified fall, initial encounter - Discharge Dispostion Disposition: HOME Condition at time of disposition: Good Admit: No - Referrals - Patient Instructions Printed Discharge Instructions: DI for Post-traumatic Headache Additional Instructions: Please return to the ER if you experience concerning or worsening symptoms including worsening headache, vomiting, or pain. Your Head CT was unremarkable here in the ER. You have been cleared for evaluation at Detox. Please make sure that you call to schedule a follow up appointment with your primary care provider within 2-3 days to discuss your ER visit and further management of your symptoms. - Post Discharge Activity
== END 2017-12-22 13:39 | disposition home or self-care (01) ==
LOC: JER 11:25
DX: S09.90XA Unspecified injury of head, initial encounter (principal); W18.39XA Other fall on same level, initial encounter; Y93.89 Activity, other specified; Y92.238 Other place in hospital as the place of occurrence of the external cause; I10 Essential (primary) hypertension; E78.5 Hyperlipidemia, unspecified
CPT/HCPCS: 70450-TC; 99283-25

== ENCOUNTER 2018-05-05 17:16 | Inpatient (IN) | payer OTHER ==
[2018-05-05 18:18] VITALS: BMI 30.5
--- NOTE | 2018-05-05 18:29 | HP ---
CIWA Score - CIWA Score Nausea/Vomitin-No Nausea/No Vomiting Muscle Tremors: 6 Anxiety: 3 Agitation: 4-Moderately Restless Paroxysmal Sweats: 4-Forehead w/Sweat Beads Orientation: 0-Oriented Tacttile Disturbances: 0-None Auditory Disturbances: 0-None Visual Disturbances: 0-None Headache: 0-None Present CIWA-Ar Total Score: 17 Admission ROS S - HPI Chief Complaint: alcohol withdrawal Allergies/Adverse Reactions: Allergies Allergy/AdvReac Type Severity Reaction Status Date / Time No Known Allergies Allergy Verified 05/05/18 18:47 History of Present Illness: 57 yo male with hx of chronic alcohol dependence is here seeking detox and tx for ETOH withdrawal symptoms. utox positive for THC , MOP and BZO. Denies use MOP use. Reports was seen at [facility] about a week ago for alcohol withdrawal symptoms. Reporst last detox [facility] 12/22/17 - 12/28/17. Reports hx of EOTH related seizures with last episode one year ago. PMHX: HTN, GERD, hypokalemia, anemia, depression. Denies suicidal / homicidal ideation. Longest period of sobriety one year in 2014. Exam Limitations: No Limitations - Ebola screening Have you traveled outside of the country in the last 21 days: No (N) Have you had contact with anyone from an Ebola affected area: No Have you been sick,other than usual withdrawal symptoms: No Do you have a fever: No - Review of Systems Constitutional: Loss of Appetite (" I dont eat, all I do is drinkin"), Changes in sleep (on trazadone), Unintentional Wgt. Loss (20 lbs in 5 - 6 months) EENT: reports: No Symptoms Reported Respiratory: reports: No Symptoms reported Cardiac: reports: No Symptoms Reported GI: reports: Poor Appetite, Poor Fluid Intake, Indigestion : reports: No Symptoms Reported Musculoskeletal: reports: Other (uses cane for ambulation) Integumentary: reports: No Symptoms Reported Neuro: reports: Tremors (both hands) Endocrine: reports: Increased Thirst Hematology: reports: See HPI Psychiatric: reports: Orientated x3, Anxious, Depressed Other Systems: Reviewed and Negative Patient History - Patient Medical History Hx Anemia: No Hx Asthma: No Hx Chronic Obstructive Pulmonary Disease (COPD): No Hx Cancer: No Hx Cardiac Disorders: No Hx Congestive Heart Failure: No Hx Hypertension: No Hx Hypercholesterolemia: Yes (on medication) Hx Pacemaker: No HX Cerebrovascular Accident: No Hx Seizures: No Hx Dementia: No Hx Diabetes: No Hx Gastrointestinal Disorders: No Hx Liver Disease: No Hx Genitourinary Disorders: No Hx Sexually Transmitted Disorders: No Hx Renal Disease (ESRD): No Hx Thyroid Disease: No Hx Human Immunodeficiency Virus (HIV): No (2016, declines testing today) Hx Hepatitis C: No Hx Depression: Yes (take medication (doesn't remember name of medication)) Hx Suicide Attempt: Yes (as a teenage , tried to take pills ) Hx Bipolar Disorder: No Hx Schizophrenia: No - Patient Surgical History Past Surgical History: Yes Hx Neurologic Surgery: Yes (S/P CRANIOTOMY FOR BLEEDING IN 02/05 from taking Xarelto) Hx Cataract Extraction: No Hx Cardiac Surgery: No Hx Lung Surgery: No Hx Breast Surgery: No Hx Breast Biopsy: No Hx Abdominal Surgery: Yes (Umbilical hernia repair x 2 many years ago) Hx Appendectomy: No Hx Cholecystectomy: No Hx Genitourinary Surgery: No Hx Section: No Hx Orthopedic Surgery: Yes Other Surgical History: HERNIA REPAIR, HEAD SX Anesthesia Reaction: No - PPD History Previous Implant?: No Documented Results: Negative w/proof Implanted On Prior [facility] Admission?: No Date: 11/21/17 Results: 0 MM PPD to be Administered?: Yes - Smoking Cessation Smoking history: Never smoked Have you smoked in the past 12 months: No Aproximately how many cigarettes per day: 0 If you are a former smoker, when did you quit?: 61/2 years ago Hx Chewing Tobacco Use: No Initiated information on smoking cessation: No - Substance & Tx. History Hx Alcohol Use: Yes Substance Use Type: Alcohol Hx Substance Use Treatment: Yes (Last detox [facility] 12/22/17 -12/28/17) - Substances Abused Alcohol Route: Oral Frequency: Daily Amount used: two fith a day Age of first use: 16 Date of Last Use: 05/05/18 Family Disease History - Family Disease History Family Disease History: CA: Mother (BREAST ON REMISSION), Other: Father ( alcohol ) Admission Physical Exam BHS - Vital Signs Vital Signs: Vital Signs - 24 hr 05/05/18 18:14 Temperature 98.8 F Pulse Rate 120 H Respiratory 18 Rate Blood Pressure 154/106 - Physical General Appearance: Yes: Disheveled, Moderate Distress, Obese, Tremorous, Sweating, Anxious HEENTM: Yes: EOMI, Hearing grossly Normal, Normal ENT Inspection, Normocephalic , Normal Voice, SHAVON, Pharynx Normal, Tm's normal Respiratory: Yes: Within Normal Limits Neck: Yes: Within Normal Limits Breast: Yes: Breast Exam Deferred Cardiology: Yes: Regular Rhythm, Tachycardia Abdominal: Yes: Normal Bowel Sounds, Non Tender, Soft, Protuberent Genitourinary: Yes: Within Normal Limits Back: Yes: Normal Inspection Musculoskeletal: Yes: full range of Motion, Gait Steady, Pelvis Stable, Other ( uses cane for ambulation) Extremities: Yes: Normal Capillary Refill, Normal Inspection, Normal Range of Motion, Tremors (both upper extremities) 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, Fully Oriented, Alert, Motor Strength 5/5, Depressed Affect Integumentary: Yes: Normal Color, Warm, Diaphoresis Lymphatic: Yes: Within Normal Limits - Diagnostic (1) Use of cane as ambulatory aid Current Visit: Yes Status: Acute (2) Tremor due to drug withdrawal Current Visit: Yes Status: Acute (3) Hypokalemia Current Visit: Yes Status: Chronic Comment: on K+ 20 meq qd (4) Depression Current Visit: Yes Status: Suspected Qualifiers: Depression Type: major depressive disorder Major depression recurrence: recurrent Active/Remission status: in remission of unspecified degree Qualified Code(s): F33.40 - Major depressive disorder, recurrent, in remission, unspecified (5) GERD (gastroesophageal reflux disease) Current Visit: Yes Status: Chronic Qualifiers: Esophagitis presence: esophagitis presence not specified Qualified Code(s) : K21.9 - Gastro-esophageal reflux disease without esophagitis (6) Hypertension Current Visit: Yes Status: Chronic Qualifiers: Hypertension type: essential hypertension (7) Neuropathy Current Visit: Yes Status: Chronic Cleared for Admission [facility] - Detox or Rehab [facility] Level of Care: Medically Managed Detox Regimen/Protocol: Librium [facility] Breath Alcohol Content Breath Alcohol Content: 0.203 Urine Drug Screen - Results Drug Screen Negative: No Urine Drug Screen Results: THC-Marijuana, OPI-Opiates, BZO-Benzodiazepines
[2018-05-05] MEDS ORDERED: MAG HYDROX/AL HYDROX/SIMETH 30 ML UNIT-DOSE CUP PO PRN (18:40)
[2018-05-05] MEDS ORDERED: MAGNESIUM CITRATE 300 ML BOTTLE PO PRN (18:40)
[2018-05-05] MEDS ORDERED: P-EPHED 60MG/TRIPROLIDI 2.5MG TABLET PO PRN (18:40)
[2018-05-05] MEDS ORDERED: MAGNESIUM HYDROX 2400MG/30ML ORAL SUSPENSION 30 ML CUP PO PRN (18:40)
[2018-05-05] MEDS ORDERED: guaiFENesin/D-METHORPHAN HB 10 ML UNIT-DOSE CUPS PO PRN (18:40)
[2018-05-05] MEDS ORDERED: MENTHOL/PHENOL 1 EACH UD MM PRN (18:40)
[2018-05-05] MEDS ORDERED: ACETAMINOPHEN 325 MG TABLET (FP) PO PRN (18:40)
[2018-05-05] MEDS ORDERED: cloNIDine HCL 0.1 MG TABLET PO ONE (19:15)
[2018-05-05] MEDS ORDERED: chlordiazePOXIDE HCL 25 MG CAPSULE PO ONE (19:15)
[2018-05-05] MEDS: THIAMINE HCL 100 MG TABLET (FP) PO SCH (22:10)
[2018-05-05] MEDS: chlordiazePOXIDE HCL 25 MG CAPSULE PO SCH (22:11)
[2018-05-05] MEDS: BACLOFEN 10 MG TABLET (FP) PO SCH (22:11)
[2018-05-05] MEDS: MELATONIN 5 MG TABLETS PO PRN (22:11)
[2018-05-05] MEDS: LOPERAMIDE HCL 2 MG CAPSULE PO PRN (22:31)
[2018-05-05 23:56] LABS: URINE APPEARANCE SLCLOUDY; URINE BILIRUBIN NEGATIVE (<2.0 mg/dL); URINE COLOR AMBER; URINE GLUCOSE (UA) NEGATIVE (NEGATIVE); URINE KETONE 1+ (NEGATIVE); URINE LEUK ESTERASE NEGATIVE (NEGATIVE); URINE NITRITE NEGATIVE (NEGATIVE); URINE UROBILINOGEN NEGATIVE mg/dL (0.2-1.0)
[2018-05-06 00:13] LABS: URINE PROTEIN 3+ (NEGATIVE)
[2018-05-06 00:54] LABS: CALCIUM OXALATE CRYSTALS RARE /hpf (NONE SEEN); EPI CELLS RARE /HPF (FEW); URINE BACTERIA FEW /hpf (NONE SEEN); URINE HYALINE CAST 2 /lpf; URINE MUCUS MANY
[2018-05-06] MEDS: hydrOXYzine PAMOATE 25 MG CAPSULE (FP) PO PRN ×3 (02:30→18:29)
[2018-05-06] MEDS: chlordiazePOXIDE HCL 25 MG CAPSULE PO PRN ×2 (02:31→08:59)
[2018-05-06] MEDS: chlordiazePOXIDE HCL 25 MG CAPSULE PO SCH ×4 (05:08→22:08)
[2018-05-06] MEDS: RANITIDINE HCL 150 MG TABLET (FP) PO SCH (10:09)
[2018-05-06] MEDS: PRENATAL VITAMINS W/ FOLIC ACID TABLET (FP) PO SCH (10:09)
[2018-05-06] MEDS: POTASSIUM CHLORIDE TABS 20 MEQ TABLET.ER (FP) PO SCH (10:09)
[2018-05-06] MEDS: BACLOFEN 10 MG TABLET (FP) PO SCH ×2 (10:09→22:09)
[2018-05-06] MEDS: LOPERAMIDE HCL 2 MG CAPSULE PO PRN ×2 (10:11→17:10)
--- NOTE | 2018-05-06 10:20 | CONSULT ---
[facility] Psychiatric Consult - Data Date of interview: 05/06/18 Admission source: [facility] Identifying data: Patient is a 57 year old male, without children, domiciled, and supported by [facility]. This is one of multiple admissions for patient. Pt. admitted to for alcohol dependence. Substance Abuse History: Smoking Cessation. Smoking history: Never smoked. Have you smoked in the past 12 months: No. Aproximately how many cigarettes per day: 0. If you are a former smoker, when did you quit?: 61/2 years ago. Hx Chewing Tobacco Use: No. Initiated information on smoking cessation: No. - Substance & Tx. History. Hx Alcohol Use: Yes. Substance Use Type: Alcohol. Hx Substance Use Treatment: Yes (Last detox [facility] 12/22/17 -12/28/17). - Substances Abused. Alcohol. Route: Oral. Frequency: Daily. Amount used: two fith a day. Age of first use: 16. Date of Last Use: 05/05/18 Medical History: S/P CRANIOTOMY FOR BLEEDING IN 02/05 from taking Xarelto, Umbilical hernia repair x 2 many years ago Psychiatric History: Patient reports three psychiatric hospitalizations, most recently in 2016 at [facility]. Patient is also known to [facility]. Outpatient psychiatric services is provided at [facility] outpatient clinic. Diagnosis of Bipolar disorder. Pt. is currently prescribed abilify maintena injection 400mg + Celexa 20mg + trazodone 150mg qhs (although reports only taking trazodone 100mg). He received his abilify maintena injection 400mg 2 weeks ago. Pt. reports poor sleep. Pt. denies h/o suicide attempt. Physical/Sexual Abuse/Trauma History: denies. Mental Status Exam - Mental Status Exam Alert and Oriented to: Time, Place, Person Cognitive Function: Good Patient Appearance: Well Groomed Mood: Hopeful, Euthymic Affect: Appropriate Patient Behavior: Appropriate, Cooperative Speech Pattern: Clear, Appropriate Voice Loudness: Normal Thought Process: Intact, Goal Oriented Thought Disorder: Not Present Hallucinations: Denies Suicidal Ideation: Denies Homicidal Ideation: Denies Insight/Judgement: Poor Sleep: Poorly Appetite: Fair Muscle strength/Tone: Normal Gait/Station: Normal Psychiatric Findings - Problem List ([place] 1, 2,3) (1) Alcohol dependence with uncomplicated withdrawal Current Visit: Yes Status: Acute (2) Bipolar disorder Current Visit: Yes Status: Chronic Comment: As per self-report.On medications.Followed at [facility] clinic in the [place]. (3) Insomnia Current Visit: Yes Status: Acute - Initial Treatment Plan Initial Treatment Plan: Psychoeducation provided. Detoxification in progress. Will order Celexa 20mg daily + Trazodone 100mg. Abilify Maintena injection 400mg was given 2 weeks ago. Pt. is not due for abilify injection at this time. Pt is a good historian. Benefits and side effects discussed. Pt. made aware of the risk of Priapism when accepting trazodone. Will continue to monitor.
[2018-05-06 10:39] LABS: HEMATOCRIT 41.6 % (35.4-49); HEMOGLOBIN 13.9 GM/dL (11.7-16.9); MCH 32.8 pg (25.7-33.7); MCHC 33.4 g/dl (32.0-35.9); MEAN CELL VOLUME 98.1 fl (80-96); MEAN PLT VOLUME 8.6 fl (7.5-11.1); PLATELET COUNT 118 K/MM3 (134-434); RBC 4.24 M/mm3 (4.00-5.60); RDW 14.6 % (11.9-15.9); WHITE BLOOD COUNT 4.7 K/mm3 (4.0-10.0)
[2018-05-06 10:51] LABS: ALBUMIN 3.7 g/dl (3.4-5.0); ANION GAP 12 MMOL/L (8-16); BLOOD UREA NITROGEN 11 mg/dL (7-18); CALCIUM 8.6 mg/dL (8.5-10.1); CHLORIDE 102 mmol/L (98-107); CO2 28 mmol/L (21-32); GLUCOSE,RANDOM 100 mg/dL (74-106); POTASSIUM 3.1 mmol/L (3.5-5.1); SODIUM 142 mmol/L (136-145)
[2018-05-06 10:56] LABS: ALK PHOS 82 U/L (45-117); CREATININE 0.6 mg/dL (0.7-1.3); SGOT/AST 85 U/L (15-37); SGPT/ALT 63 U/L (13-61)
[2018-05-06] MEDS: CITALOPRAM HYDROBROMIDE 20 MG TABLET (FP) PO SCH (11:20)
--- NOTE | 2018-05-06 11:55 | PN ---
S CIWA - CIWA Score Nausea/Vomitin-Mild Nausea/No Vomiting Muscle Tremors: None Anxiety: 2 Agitation: 1-Slight > Activity Paroxysmal Sweats: No Perspiration Orientation: 0-Oriented Tacttile Disturbances: 0-None Auditory Disturbances: 0-None Visual Disturbances: 0-None Headache: 1-Very Mild CIWA-Ar Total Score: 5 BHS Progress Note (SOAP) Subjective: Patient c/o anxiety, insomnia mild nausea. Objective: 05/06/18 11:53 Laboratory Tests 05/05/18 05/06/18 05/06/18 Unknown 07:00 07:00 WBC 4.7 RBC 4.24 Hgb 13.9 Hct 41.6 MCV 98.1 H MCH 32.8 MCHC 33.4 RDW 14.6 D Plt Count 118 L MPV 8.6 Sodium 142 Potassium 3.1 L Chloride 102 Carbon Dioxide 28 Anion Gap 12 BUN 11 Creatinine 0.6 L Creat Clearance w eGFR > 60 Random Glucose 100 D Calcium 8.6 Total Bilirubin 1.0 AST 85 H ALT 63 H Alkaline Phosphatase 82 Total Protein 7.0 Albumin 3.7 Urine Color Jessy Urine Appearance Slcloudy Urine pH 5.0 Ur Specific [place] 1.028 Urine Protein 3+ H Urine Glucose (UA) Negative Urine Ketones 1+ H Urine Blood 1+ H Urine Nitrite Negative Urine Bilirubin Negative Urine Urobilinogen Negative Ur Leukocyte Esterase Negative Urine WBC (Auto) 5 Urine RBC (Auto) 2 Ur Epithelial Cells Rare Calcium Oxalate Crystal Rare Urine Bacteria Few Hyaline Casts 2 Urine Mucus Many RPR Titer 05/06/18 07:00 WBC RBC Hgb Hct MCV MCH MCHC RDW Plt Count MPV Sodium Potassium Chloride Carbon Dioxide Anion Gap BUN Creatinine Creat Clearance w eGFR Random Glucose Calcium Total Bilirubin AST ALT Alkaline Phosphatase Total Protein Albumin Urine Color Urine Appearance Urine pH Ur Specific [place] Urine Protein Urine Glucose (UA) Urine Ketones Urine Blood Urine Nitrite Urine Bilirubin Urine Urobilinogen Ur Leukocyte Esterase Urine WBC (Auto) Urine RBC (Auto) Ur Epithelial Cells Calcium Oxalate Crystal Urine Bacteria Hyaline Casts Urine Mucus RPR Titer Nonreactive Vital Signs Temperature 98.9 F 05/06/18 09:42 Pulse Rate 100 H 05/06/18 10:00 Respiratory Rate 20 05/06/18 10:00 Blood Pressure 146/90 05/06/18 09:42 O2 Sat by Pulse Oximetry (%) Assessment: 05/06/18 11:53 Laboratory Tests 05/05/18 05/06/18 05/06/18 Unknown 07:00 07:00 WBC 4.7 RBC 4.24 Hgb 13.9 Hct 41.6 MCV 98.1 H MCH 32.8 MCHC 33.4 RDW 14.6 D Plt Count 118 L MPV 8.6 Sodium 142 Potassium 3.1 L Chloride 102 Carbon Dioxide 28 Anion Gap 12 BUN 11 Creatinine 0.6 L Creat Clearance w eGFR > 60 Random Glucose 100 D Calcium 8.6 Total Bilirubin 1.0 AST 85 H ALT 63 H Alkaline Phosphatase 82 Total Protein 7.0 Albumin 3.7 Urine Color Jessy Urine Appearance Slcloudy Urine pH 5.0 Ur Specific [place] 1.028 Urine Protein 3+ H Urine Glucose (UA) Negative Urine Ketones 1+ H Urine Blood 1+ H Urine Nitrite Negative Urine Bilirubin Negative Urine Urobilinogen Negative Ur Leukocyte Esterase Negative Urine WBC (Auto) 5 Urine RBC (Auto) 2 Ur Epithelial Cells Rare Calcium Oxalate Crystal Rare Urine Bacteria Few Hyaline Casts 2 Urine Mucus Many RPR Titer 05/06/18 07:00 WBC RBC Hgb Hct MCV MCH MCHC RDW Plt Count MPV Sodium Potassium Chloride Carbon Dioxide Anion Gap BUN Creatinine Creat Clearance w eGFR Random Glucose Calcium Total Bilirubin AST ALT Alkaline Phosphatase Total Protein Albumin Urine Color Urine Appearance Urine pH Ur Specific [place] Urine Protein Urine Glucose (UA) Urine Ketones Urine Blood Urine Nitrite Urine Bilirubin Urine Urobilinogen Ur Leukocyte Esterase Urine WBC (Auto) Urine RBC (Auto) Ur Epithelial Cells Calcium Oxalate Crystal Urine Bacteria Hyaline Casts Urine Mucus RPR Titer Nonreactive Vital Signs Temperature 98.9 F 05/06/18 09:42 Pulse Rate 100 H 05/06/18 10:00 Respiratory Rate 20 05/06/18 10:00 Blood Pressure 146/90 05/06/18 09:42 O2 Sat by Pulse Oximetry (%) Hypokalemia Withdrawal syndrome Plan: Will continue K supplement as ordered Repeat BMP in am continue detox protocol
--- NOTE | 2018-05-06 15:41 | EKG ---
Test Reason : Blood Pressure : / mmHG Vent. Rate : 119 BPM Atrial Rate : 119 BPM P-R Int : 166 ms QRS Dur : 088 ms QT Int : 304 ms P-R-T Axes : 050 -02 063 degrees QTc Int : 427 ms SINUS TACHYCARDIA OTHERWISE NORMAL ECG WHEN COMPARED WITH ECG OF 23-DEC-2017 06:38, NON-SPECIFIC CHANGE IN ST SEGMENT IN LATERAL LEADS NONSPECIFIC T WAVE ABNORMALITY, IMPROVED IN ANTEROLATERAL LEADS Confirmed by LAURA RENTERIA, TOMAS ([id number]) on 05/06/2018 3:41:24 PM Referred By: Confirmed By:TOMAS SANCHEZ MD
--- NOTE | 2018-05-06 15:41 | EKG ---
Test Reason : Blood Pressure : / mmHG Vent. Rate : 097 BPM Atrial Rate : 097 BPM P-R Int : 164 ms QRS Dur : 092 ms QT Int : 344 ms P-R-T Axes : 036 017 048 degrees QTc Int : 436 ms NORMAL SINUS RHYTHM NORMAL ECG WHEN COMPARED WITH ECG OF 05-MAY-2018 19:10, NONSPECIFIC T WAVE ABNORMALITY NOW EVIDENT IN ANTERIOR LEADS Confirmed by TOMAS SANCHEZ MD ([id number]) on 05/06/2018 3:40:44 PM Referred By: Confirmed By:TOMAS SANCHEZ MD
[2018-05-06] MEDS: THIAMINE HCL 100 MG TABLET (FP) PO SCH (22:08)
[2018-05-06] MEDS: traZODone HCL 100 MG TABLET (FP) PO SCH (22:09)
[2018-05-06] MEDS: MELATONIN 5 MG TABLETS PO PRN (22:09)
[2018-05-07] MEDS: chlordiazePOXIDE HCL 25 MG CAPSULE PO SCH ×3 (05:47→17:02)
[2018-05-07] MEDS: chlordiazePOXIDE HCL 25 MG CAPSULE PO PRN ×2 (07:50→12:04)
--- NOTE | 2018-05-07 09:38 | PN ---
S CIWA - CIWA Score Nausea/Vomitin-No Nausea/No Vomiting Muscle Tremors: None Anxiety: 2 Agitation: 2 Paroxysmal Sweats: No Perspiration Orientation: 0-Oriented Tacttile Disturbances: 0-None Auditory Disturbances: 0-None Visual Disturbances: 0-None Headache: 0-None Present CIWA-Ar Total Score: 4 BHS Progress Note (SOAP) Subjective: Patient presents with anxiety and irritability. Objective: 05/07/18 09:35 Vital Signs Temperature 97.7 F 05/07/18 06:03 Pulse Rate 68 05/07/18 06:03 Respiratory Rate 18 05/07/18 06:03 Blood Pressure 105/66 05/07/18 06:03 O2 Sat by Pulse Oximetry (%) Laboratory Tests 05/05/18 05/06/18 05/06/18 Unknown 07:00 07:00 WBC 4.7 RBC 4.24 Hgb 13.9 Hct 41.6 MCV 98.1 H MCH 32.8 MCHC 33.4 RDW 14.6 D Plt Count 118 L MPV 8.6 Sodium 142 Potassium 3.1 L Chloride 102 Carbon Dioxide 28 Anion Gap 12 BUN 11 Creatinine 0.6 L Creat Clearance w eGFR > 60 Random Glucose 100 D Calcium 8.6 Total Bilirubin 1.0 AST 85 H ALT 63 H Alkaline Phosphatase 82 Total Protein 7.0 Albumin 3.7 Urine Color Jessy Urine Appearance Slcloudy Urine pH 5.0 Ur Specific [place] 1.028 Urine Protein 3+ H Urine Glucose (UA) Negative Urine Ketones 1+ H Urine Blood 1+ H Urine Nitrite Negative Urine Bilirubin Negative Urine Urobilinogen Negative Ur Leukocyte Esterase Negative Urine WBC (Auto) 5 Urine RBC (Auto) 2 Ur Epithelial Cells Rare Calcium Oxalate Crystal Rare Urine Bacteria Few Hyaline Casts 2 Urine Mucus Many RPR Titer 05/06/18 07:00 WBC RBC Hgb Hct MCV MCH MCHC RDW Plt Count MPV Sodium Potassium Chloride Carbon Dioxide Anion Gap BUN Creatinine Creat Clearance w eGFR Random Glucose Calcium Total Bilirubin AST ALT Alkaline Phosphatase Total Protein Albumin Urine Color Urine Appearance Urine pH Ur Specific [place] Urine Protein Urine Glucose (UA) Urine Ketones Urine Blood Urine Nitrite Urine Bilirubin Urine Urobilinogen Ur Leukocyte Esterase Urine WBC (Auto) Urine RBC (Auto) Ur Epithelial Cells Calcium Oxalate Crystal Urine Bacteria Hyaline Casts Urine Mucus RPR Titer Nonreactive alert and oriented skin warm and dry car [id number] resp cta bl ext no edema Assessment: 05/07/18 09:38 withdrawal syndrome Plan: continue detox as per protocol encourage oral fluids repeat labs result pending.
[2018-05-07] MEDS: CITALOPRAM HYDROBROMIDE 20 MG TABLET (FP) PO SCH (10:12)
[2018-05-07] MEDS: PRENATAL VITAMINS W/ FOLIC ACID TABLET (FP) PO SCH (10:12)
[2018-05-07] MEDS: BACLOFEN 10 MG TABLET (FP) PO SCH ×2 (10:12→22:11)
[2018-05-07] MEDS: POTASSIUM CHLORIDE TABS 20 MEQ TABLET.ER (FP) PO SCH (10:12)
[2018-05-07] MEDS: RANITIDINE HCL 150 MG TABLET (FP) PO SCH (10:12)
[2018-05-07 11:23] LABS: CHLORIDE 102 mmol/L (98-107); POTASSIUM 3.3 mmol/L (3.5-5.1); SODIUM 142 mmol/L (136-145)
[2018-05-07 11:32] LABS: ANION GAP 12 MMOL/L (8-16); BLOOD UREA NITROGEN 8 mg/dL (7-18); CO2 28 mmol/L (21-32); CREATININE 0.7 mg/dL (0.55-1.3); GLUCOSE,RANDOM 122 mg/dL (74-106)
[2018-05-07] MEDS: IBUPROFEN 400 MG TABLET (FP) PO PRN (12:31)
[2018-05-07] MEDS: hydrOXYzine PAMOATE 25 MG CAPSULE (FP) PO PRN ×2 (14:36→20:40)
[2018-05-07] MEDS: chlordiazePOXIDE 5 MG CAPSULE PO SCH (22:11)
[2018-05-07] MEDS: THIAMINE HCL 100 MG TABLET (FP) PO SCH (22:11)
[2018-05-07] MEDS: traZODone HCL 100 MG TABLET (FP) PO SCH (22:11)
[2018-05-07] MEDS: MELATONIN 5 MG TABLETS PO PRN (22:12)
[2018-05-08] MEDS: chlordiazePOXIDE 5 MG CAPSULE PO SCH ×3 (05:07→17:35)
[2018-05-08] MEDS: hydrOXYzine PAMOATE 25 MG CAPSULE (FP) PO PRN ×2 (07:27→13:07)
--- NOTE | 2018-05-08 09:50 | PN ---
BHS Progress Note (SOAP) Subjective: etoh withdrawal, c/o tremors , nausea , vomiting , diarrhea Chlordiazepoxide in progress Objective: 05/08/18 09:49 thuy UE tremors CBC, BMP 05/06/18 07:00 05/07/18 07:20 Assessment: alcohol dependence 05/08/18 09:49 Plan: continue chlordiazepoxide
[2018-05-08] MEDS: PRENATAL VITAMINS W/ FOLIC ACID TABLET (FP) PO SCH (10:12)
[2018-05-08] MEDS: RANITIDINE HCL 150 MG TABLET (FP) PO SCH (10:12)
[2018-05-08] MEDS: POTASSIUM CHLORIDE TABS 20 MEQ TABLET.ER (FP) PO SCH (10:12)
[2018-05-08] MEDS: CITALOPRAM HYDROBROMIDE 20 MG TABLET (FP) PO SCH (10:13)
[2018-05-08] MEDS: BACLOFEN 10 MG TABLET (FP) PO SCH ×2 (10:13→22:11)
[2018-05-08 13:06] LABS: URINE APPEARANCE TURBID; URINE BILIRUBIN NEGATIVE (<2.0 mg/dL); URINE GLUCOSE (UA) NEGATIVE (NEGATIVE); URINE KETONE NEGATIVE (NEGATIVE); URINE LEUK ESTERASE NEGATIVE (NEGATIVE); URINE NITRITE NEGATIVE (NEGATIVE)
[2018-05-08 13:18] LABS: URINE COLOR YELLOW; URINE PROTEIN 1+ (NEGATIVE)
[2018-05-08 13:25] LABS: URINE BACTERIA MODERATE /hpf (NONE SEEN); URINE MUCUS MANY
[2018-05-08] MEDS: IBUPROFEN 400 MG TABLET (FP) PO PRN (14:09)
[2018-05-08] MEDS: chlordiazePOXIDE HCL 25 MG CAPSULE PO PRN (16:29)
[2018-05-08] MEDS: traZODone HCL 100 MG TABLET (FP) PO SCH (22:11)
[2018-05-08] MEDS: THIAMINE HCL 100 MG TABLET (FP) PO SCH (22:11)
[2018-05-08] MEDS: chlordiazePOXIDE HCL 10 MG CAPSULE PO SCH (22:12)
[2018-05-08] MEDS: MELATONIN 5 MG TABLETS PO PRN (22:13)
[2018-05-09] MEDS: chlordiazePOXIDE HCL 10 MG CAPSULE PO SCH ×2 (05:34→10:23)
[2018-05-09 09:29] VITALS: BP 123/82; PULSE 79; TEMP 98
[2018-05-09] MEDS: PRENATAL VITAMINS W/ FOLIC ACID TABLET (FP) PO SCH (10:23)
[2018-05-09] MEDS: BACLOFEN 10 MG TABLET (FP) PO SCH (10:23)
[2018-05-09] MEDS: POTASSIUM CHLORIDE TABS 20 MEQ TABLET.ER (FP) PO SCH (10:23)
[2018-05-09] MEDS: RANITIDINE HCL 150 MG TABLET (FP) PO SCH (10:23)
[2018-05-09] MEDS: CITALOPRAM HYDROBROMIDE 20 MG TABLET (FP) PO SCH (10:23)
--- NOTE | 2018-05-09 13:20 | DS ---
[facility] Detox Discharge Summary Admission Date: 05/05/18 Discharge Date: 05/09/18 - History Present History: Alcohol Dependence Pertinent Past History: HLD HTN GERD Neuropathy - Physical Exam Results Vital Signs: Vital Signs Temperature 98 F 05/09/18 09:29 Pulse Rate 79 05/09/18 09:29 Respiratory Rate 20 05/09/18 09:29 Blood Pressure 123/82 05/09/18 09:29 O2 Sat by Pulse Oximetry (%) Pertinent Admission Physical Exam Findings: Withdrawal symptoms Laboratory Last Values WBC 4.7 K/mm3 (4.0-10.0) 05/06/18 07:00 RBC 4.24 M/mm3 (4.00-5.60) 05/06/18 07:00 Hgb 13.9 GM/dL (11.7-16.9) 05/06/18 07:00 Hct 41.6 % (35.4-49) 05/06/18 07:00 MCV 98.1 fl (80-96) H 05/06/18 07:00 MCH 32.8 pg (25.7-33.7) 05/06/18 07:00 MCHC 33.4 g/dl (32.0-35.9) 05/06/18 07:00 RDW 14.6 % (11.9-15.9) D 05/06/18 07:00 Plt Count 118 K/MM3 (134-434) L 05/06/18 07:00 MPV 8.6 fl (7.5-11.1) 05/06/18 07:00 Sodium 142 mmol/L (136-145) 05/07/18 07:20 Potassium 3.6 mmol/L (3.5-5.1) 05/09/18 08:40 Chloride 102 mmol/L (98-107) 05/07/18 07:20 Carbon Dioxide 28 mmol/L (21-32) 05/07/18 07:20 Anion Gap 12 MMOL/L (8-16) 05/07/18 07:20 BUN 8 mg/dL (7-18) 05/07/18 07:20 Creatinine 0.7 mg/dL (0.55-1.3) 05/07/18 07:20 Creat Clearance w eGFR > 60 (>60) 05/07/18 07:20 Random Glucose 122 mg/dL (74-106) H 05/07/18 07:20 Calcium 9.0 mg/dL (8.5-10.1) 05/07/18 07:20 Total Bilirubin 1.0 mg/dL (0.2-1.0) 05/06/18 07:00 AST 85 U/L (15-37) H 05/06/18 07:00 ALT 63 U/L (13-61) H 05/06/18 07:00 Alkaline Phosphatase 82 U/L (45-117) 05/06/18 07:00 Total Protein 7.0 g/dl (6.4-8.2) 05/06/18 07:00 Albumin 3.7 g/dl (3.4-5.0) 05/06/18 07:00 Urine Color Yellow 05/07/18 14:58 Urine Appearance Turbid 05/07/18 14:58 Urine pH 6.0 (5.0-8.0) 05/07/18 14:58 Ur Specific [place] 1.026 (1.001-1.035) 05/07/18 14:58 Urine Protein 1+ (NEGATIVE) H D 05/07/18 14:58 Urine Glucose (UA) Negative (NEGATIVE) 05/07/18 14:58 Urine Ketones Negative (NEGATIVE) 05/07/18 14:58 Urine Blood Negative (NEGATIVE) 05/07/18 14:58 Urine Nitrite Negative (NEGATIVE) 05/07/18 14:58 Urine Bilirubin Negative (<2.0 mg/dL) 05/07/18 14:58 Urine Urobilinogen 2.0 mg/dL (0.2-1.0) 05/07/18 14:58 Ur Leukocyte Esterase Negative (NEGATIVE) 05/07/18 14:58 Urine WBC (Auto) 1 /hpf (3-5) 05/07/18 14:58 Urine RBC (Auto) None /hpf (0-3) 05/07/18 14:58 Ur Epithelial Cells Rare /HPF (FEW) 05/05/18 Unknown Calcium Oxalate Crystal Rare /hpf (NONE SEEN) 05/05/18 Unknown Urine Bacteria Moderate /hpf (NONE SEEN) 05/07/18 14:58 Hyaline Casts 2 /lpf 05/05/18 Unknown Urine Mucus Many 05/07/18 14:58 RPR Titer Nonreactive (NONREACTIVE) 05/06/18 07:00 HIV 1&2 Antibody Screen Negative 05/07/18 07:20 HIV P24 Antigen Negative 05/07/18 07:20 Labs reviewed; UA shows 1 + protein (was 3+): encouraged PO water intake and to follow up with PCP for monitoring - Treatment Hospital Course: Detox Protocol Followed, Detoxed Safely, Responded well, Discharged Condition Good - Medication Discharge Medications: Ambulatory Orders Metoprolol Succinate [Toprol Xl] 50 mg PO DAILY 11/19/17 Potassium Chloride [K-Dur -] 20 meq PO DAILY #5 tablet.er 11/23/17 Ranitidine [Zantac -] 150 mg PO DAILY #30 tablet 11/23/17 traZODone HCL [Desyrel -] 50 mg PO HS #30 tablet 12/26/17 Citalopram Hydrobromide [Celexa -] 20 mg PO DAILY 05/06/18 - Diagnosis (1) Proteinuria Current Visit: Yes Status: Acute (2) Alcohol dependence with uncomplicated withdrawal Current Visit: Yes Status: Acute (3) GERD (gastroesophageal reflux disease) Current Visit: Yes Status: Chronic Qualifiers: Esophagitis presence: esophagitis presence not specified Qualified Code(s) : K21.9 - Gastro-esophageal reflux disease without esophagitis (4) Hypertension Current Visit: Yes Status: Chronic Qualifiers: Hypertension type: essential hypertension (5) Hypokalemia Current Visit: Yes Status: Acute (6) Neuropathy Current Visit: Yes Status: Chronic (7) Depression Current Visit: Yes Status: Chronic Qualifiers: Depression Type: major depressive disorder Major depression recurrence: recurrent Active/Remission status: in remission of unspecified degree Qualified Code(s): F33.40 - Major depressive disorder, recurrent, in remission, unspecified (8) Hx of hypercholesterolemia Current Visit: No Status: Chronic - AMA Did Patient Leave Against Medical Advice: No (F/U with your PCP within 1-2 weeks )
[2018-05-09] MEDS ORDERED: chlordiazePOXIDE 5 MG CAPSULE PO SCH (22:00)
== END 2018-05-09 11:15 | disposition home or self-care (01) | DRG 897 ==
LOC: YASAS 17:16 → Y3N 18:56
PROC: HZ2ZZZZ Detoxification Services for Substance Abuse Treatment (ICD-10-PCS; principal; 2018-05-05)
DX: F10.230 Alcohol dependence with withdrawal, uncomplicated (principal); F33.40 Major depressive disorder, recurrent, in remission, unspecified; F31.9 Bipolar disorder, unspecified; G47.00 Insomnia, unspecified; I10 Essential (primary) hypertension; E87.6 Hypokalemia; K21.9 Gastro-esophageal reflux disease without esophagitis; E78.00 Pure hypercholesterolemia, unspecified; G25.1 Drug-induced tremor; R80.9 Proteinuria, unspecified; R26.2 Difficulty in walking, not elsewhere classified; Z99.89 Dependence on other enabling machines and devices; Z98.890 Other specified postprocedural states; Z91.5 Personal history of self-harm
CPT/HCPCS: 36415; 80048; 80053; 81003; 81015; 84132; 85027; 86593; 87389; 93005; 93010; J0475; J0735

== ENCOUNTER 2018-06-11 10:41 | Inpatient (IN) | payer OTHER ==
[2018-06-11 11:13] VITALS: BMI 28.2
--- NOTE | 2018-06-11 11:48 | HP ---
COWS - Scale Resting Pulse: 4= [place] > 121 Sweatin= Chills/Flushing Restless Observation: 1= Difficult to Sit Still Pupil Size: 1= Pupils >than Normal Bone or Joint Aches: 2= Severe Diffuse Aches Runny Nose/ Eye Tearin= Runny Nose/Eyes GI Upset > 30mins: 2= Nausea/Diarrhea Tremor Observation: 2= Slight Tremor Visible Yawning Observation: 1= 1-2x During Session Anxiety or Irritability: 2=Irritable/Anxious Goose Flesh Skin: 0=Smooth Skin COWS Score: 18 CIWA Score - CIWA Score Nausea/Vomitin Muscle Tremors: 2 Anxiety: 2 Agitation: 2 Paroxysmal Sweats: 1-Minimal Palms Moist Orientation: 0-Oriented Tacttile Disturbances: 1-Very Mild Itch/Numbness Auditory Disturbances: 1-Very Mild Visual Disturbances: 1-Very Mild Sensitivity Headache: 2-Mild CIWA-Ar Total Score: 14 Admission ROS BHS - HPI Chief Complaint: i need help to stop using heroin and alcohol Allergies/Adverse Reactions: Allergies Allergy/AdvReac Type Severity Reaction Status Date / Time No Known Allergies Allergy Verified 06/11/18 11:37 History of Present Illness: this 57 years old male with heroin and alcohol dependence,seeking detox, withdrawal symptom,last detox 05/05/18 to 05/09/18 multiple admissions in detox,keep relapsing hypertension bipolar disorder' gerd s/p surgery for cerebral bleeding right in 2014 longest sobriety 20 years ambulation with cane - Ebola screening Have you traveled outside of the country in the last 21 days: No Have you had contact with anyone from an Ebola affected area: No Have you been sick,other than usual withdrawal symptoms: No Do you have a fever: No - Review of Systems Constitutional: Chills, Loss of Appetite, Malaise, Night Sweats, Changes in sleep, Weakness, Unintentional Wgt. Loss EENT: reports: No Symptoms Reported, Nose Congestion, Other (scar in right parietal area luci surgery) Respiratory: reports: No Symptoms reported Cardiac: reports: Palpitations GI: reports: Nausea, Vomiting, Abdominal cramping : reports: No Symptoms Reported Musculoskeletal: reports: Back Pain, Joint Pain, Muscle Pain Integumentary: reports: Dryness Neuro: reports: Headache, Tremors Endocrine: reports: No Symptoms Reported Hematology: reports: No Symptoms Reported Psychiatric: reports: No Sypmtoms Reported, Judgement Intact, Mood/Affect Appropiate, Orientated x3 (biploar disorder) Patient History - Patient Medical History Hx Anemia: No Hx Asthma: No Hx Chronic Obstructive Pulmonary Disease (COPD): No Hx Cancer: No Hx Cardiac Disorders: No Hx Congestive Heart Failure: No Hx Hypertension: Yes (on medication) Hx Hypercholesterolemia: Yes (on medication) Hx Pacemaker: No HX Cerebrovascular Accident: No Hx Seizures: No Hx Dementia: No Hx Diabetes: No Hx Gastrointestinal Disorders: No Hx Liver Disease: No Hx Genitourinary Disorders: No Hx Sexually Transmitted Disorders: No Hx Renal Disease (ESRD): No Hx Thyroid Disease: No Hx Human Immunodeficiency Virus (HIV): No (2017, declines testing today) Hx Hepatitis C: No Hx Depression: Yes (take medication (doesn't remember name of medication)) Hx Suicide Attempt: Yes (as a teenage , tried to take pills ) Hx Bipolar Disorder: No Hx Schizophrenia: No Other Medical History: no suicidal,no homicidal - Patient Surgical History Past Surgical History: Yes Hx Neurologic Surgery: Yes (S/P CRANIOTOMY FOR BLEEDING IN 02/05 from taking Xarelto) Hx Cataract Extraction: No Hx Cardiac Surgery: No Hx Lung Surgery: No Hx Breast Surgery: No Hx Breast Biopsy: No Hx Abdominal Surgery: Yes (Umbilical hernia repair x 2 many years ago) Hx Appendectomy: No Hx Cholecystectomy: No Hx Genitourinary Surgery: No Hx Section: No Hx Orthopedic Surgery: No Other Surgical History: HERNIA REPAIR, HEAD SX Anesthesia Reaction: No - PPD History Previous Implant?: Yes Documented Results: Negative w/proof Implanted On Prior [facility] Admission?: Yes Date: 11/21/17 Results: 0 MM PPD to be Administered?: No - Smoking Cessation Smoking history: Never smoked Have you smoked in the past 12 months: No Aproximately how many cigarettes per day: 0 If you are a former smoker, when did you quit?: 61/2 years ago Hx Chewing Tobacco Use: No - Substance & Tx. History Hx Alcohol Use: Yes Hx Substance Use: Yes Substance Use Type: Alcohol, Heroin Hx Substance Use Treatment: Yes ([facility] 05/05/18 to 05/09/18) - Substances Abused Heroin Route: Inhalation Frequency: Daily Amount used: 2 bags Age of first use: 22 Date of Last Use: 06/10/18 Alcohol Route: Oral Frequency: Daily Amount used: fifth of vodka Age of first use: 16 Date of Last Use: 06/11/18 Family Disease History - Family Disease History Family Disease History: CA: Mother (BREAST ON REMISSION), Other: Father ( alcohol ) Admission Physical Exam [facility] - Vital Signs Vital Signs: Vital Signs - 24 hr 06/11/18 11:10 Temperature 99.9 F H Pulse Rate 133 H Respiratory 18 Rate Blood Pressure 144/93 - Physical General Appearance: Yes: Moderate Distress, Tremorous, Irritable, Sweating, Anxious HEENTM: Yes: Normal ENT Inspection, SH[place], Pharynx Normal, Other (scar in right parietal) Respiratory: Yes: Lungs Clear, Normal Breath Sounds, No Respiratory Distress Neck: Yes: Supple, Trachea in good position, Thyroid tenderness Breast: Yes: Within Normal Limits Cardiology: Yes: Tachycardia Abdominal: Yes: Within Normal Limits, Normal Bowel Sounds, Non Tender, Flat, Soft Genitourinary: Yes: Within Normal Limits Back: Yes: Muscle Spasm Musculoskeletal: Yes: Back pain, Joint Stiffness, Muscle Pain Extremities: Yes: Tremors Neurological: Yes: 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 intact, Fully Oriented, Alert, Motor Strength 5/5 Integumentary: Yes: Dry Lymphatic: Yes: Within Normal Limits - Diagnostic (1) Opioid dependence with withdrawal Current Visit: Yes Status: Acute (2) Alcohol dependence with uncomplicated withdrawal Current Visit: Yes Status: Acute (3) Insomnia Current Visit: Yes Status: Acute (4) Anxiety Current Visit: Yes Status: Acute (5) Use of cane as ambulatory aid Current Visit: No Status: Acute (6) Essential hypertension Current Visit: Yes Status: Acute (7) GERD (gastroesophageal reflux disease) Current Visit: No Status: Chronic Qualifiers: Esophagitis presence: esophagitis presence not specified Qualified Code(s) : K21.9 - Gastro-esophageal reflux disease without esophagitis (8) Hx of hypercholesterolemia Current Visit: No Status: Chronic (9) History of craniotomy Current Visit: Yes Status: Acute Cleared for Admission [facility] - Detox or Rehab [facility] Level of Care: Medically Managed Detox Regimen/Protocol: Methadone/Librium [facility] Breath Alcohol Content Breath Alcohol Content: 0.035 Urine Drug Screen - Results Drug Screen Negative: No Urine Drug Screen Results: THC-Marijuana, OPI-Opiates, MET-Methamphetamine, BAR- Barbiturates, BZO-Benzodiazepines, MTD-Methadone, OXY-Oxycodone, FEN-Fentanyl, BUP-Suboxone
[2018-06-11] MEDS ORDERED: MENTHOL/PHENOL 1 EACH UD MM PRN (12:04)
[2018-06-11] MEDS ORDERED: MAGNESIUM HYDROX 2400MG/30ML ORAL SUSPENSION 30 ML CUP PO PRN (12:04)
[2018-06-11] MEDS ORDERED: P-EPHED 60MG/TRIPROLIDI 2.5MG TABLET PO PRN (12:04)
[2018-06-11] MEDS ORDERED: MAGNESIUM CITRATE 300 ML BOTTLE PO PRN (12:04)
[2018-06-11] MEDS ORDERED: LOPERAMIDE HCL 2 MG CAPSULE PO PRN (12:04)
[2018-06-11] MEDS ORDERED: ACETAMINOPHEN 325 MG TABLET (FP) PO PRN (12:04)
[2018-06-11] MEDS ORDERED: guaiFENesin/D-METHORPHAN HB 10 ML UNIT-DOSE CUPS PO PRN (12:04)
[2018-06-11] MEDS ORDERED: IBUPROFEN 400 MG TABLET (FP) PO PRN (12:04)
[2018-06-11] MEDS ORDERED: MAG HYDROX/AL HYDROX/SIMETH 30 ML UNIT-DOSE CUP PO PRN (12:04)
[2018-06-11] MEDS ORDERED: METHADONE HCL 10 MG TABLET (FOR DETOX USE ONLY) PO ONE ×2 (13:05→23:00)
[2018-06-11] MEDS: chlordiazePOXIDE HCL 25 MG CAPSULE PO PRN ×2 (13:45→19:48)
--- NOTE | 2018-06-11 15:52 | CONSULT ---
[facility] Psychiatric Consult - Data Date of interview: 06/11/18 Admission source: [facility] Identifying data: Relapse and re-admission to [facility] for this 57 y/o male seeking detoxification treatment at [address] [place] [address] for heroin and alcohol dependence.Patient is without children, domiciled, unemployed, disabled and supported on [employer] benefits. Substance Abuse History: Confirmed by the patient in this session. see details in current [facility] report : Smoking Cessation. Smoking history: Never smoked. Have you smoked in the past 12 months: No. Aproximately how many cigarettes per day: 0. If you are a former smoker, when did you quit?: 61/2 years ago. Hx Chewing Tobacco Use: No. - Substance & Tx. History. Hx Alcohol Use: Yes. Hx Substance Use: Yes. Substance Use Type: Alcohol, Heroin. Hx Substance Use Treatment: Yes ([facility] 05/05/18 to 05/09/18) Medical History: History of seizure disorder,hypertension,DVT in right leg tendinitis in left leg,injury to left biceps and left rotator cuff (self-report) ,herniated discs,chronic lumbar pain,dyslipidemia and past umbilical herniorraphy.Patient underwent neurosurgery (craniotomy) in 2014 for cerebral hemorrhage. Psychiatric History: History of two psychiatric hospitalizations in 2016 ( [facility] + [facility]).Patient is diagnosed with Bipolar Disorder. Mr Roa is followed at the [facility] OPD clinic in the [place]. Maintained on abilify and trazodone. Distant history of one suicide attempt via overdose with pills (adolescence). Physical/Sexual Abuse/Trauma History: Patient denies. Additional Comment: Urine Drug Screen Results: THC-Marijuana, OPI-Opiates, MET- Methamphetamine, BAR-Barbiturates, BZO-Benzodiazepines, MTD-Methadone, OXY- Oxycodone, FEN-Fentanyl, BUP-Suboxone. Noted. Mental Status Exam - Mental Status Exam Alert and Oriented to: Time, Place, Person Cognitive Function: Good Patient Appearance: Well Groomed Mood: Withdrawn, Anxious Affect: Mood Congruent Patient Behavior: Fatigued, Cooperative Speech Pattern: Clear, Appropriate Voice Loudness: Normal Thought Process: Goal Oriented Thought Disorder: Not Present Hallucinations: Denies Suicidal Ideation: Denies Homicidal Ideation: Denies Insight/Judgement: Poor Sleep: Poorly, Difficulty falling asleep Appetite: Good Muscle strength/Tone: Normal Gait/Station: Other (wals with a cane) Psychiatric Findings - Problem List ([place] 1, 2,3) (1) Alcohol dependence with uncomplicated withdrawal Current Visit: Yes Status: Acute (2) Opioid dependence with withdrawal Current Visit: Yes Status: Acute (3) Nicotine dependence Current Visit: Yes Status: Acute Qualifiers: Nicotine product type: cigarettes Substance use status: in withdrawal Qualified Code(s): F17.213 - Nicotine dependence, cigarettes, with withdrawal (4) Drug-induced mood disorder Current Visit: Yes Status: Acute (5) Bipolar disorder Current Visit: Yes Status: Chronic Comment: As per self-report.On medications.Followed at [facility]PD clinic in the [place]. (6) Insomnia Current Visit: Yes Status: Acute - Initial Treatment Plan Initial Treatment Plan: Psychoeducation. Sleep hygiene. Psychotherapy : supportive,individual,cognitive-behavioral. Falls precautions. Medications : detoxification protocol (ETOH + opioid) + trazodone 150 mg po hs. Patient is made aware of the risk of priapism.Agrees to this careplan. Observation. Patient reports that he received his injection of Abilify Maintena 300 mg IM last week ([facility] clinic). Doses are confirmed by review of pharmacy claims of 05/26/18. NO refills needed at discharge (patient plans to return to his OPD provider for continuity of care).
[2018-06-11] MEDS: chlordiazePOXIDE HCL 25 MG CAPSULE PO SCH ×2 (17:19→22:22)
[2018-06-11 18:25] LABS: URINE APPEARANCE TURBID; URINE GLUCOSE (UA) 1+ (NEGATIVE); URINE KETONE TRACE (NEGATIVE); URINE LEUK ESTERASE NEGATIVE (NEGATIVE); URINE NITRITE NEGATIVE (NEGATIVE); URINE PROTEIN 3+ (NEGATIVE)
[2018-06-11 18:28] LABS: URINE COLOR AMBER
[2018-06-11 18:32] LABS: URINE BACTERIA MODERATE /hpf (NONE SEEN); URINE MUCUS MANY; YEAST MANY
[2018-06-11] MEDS ORDERED: MELATONIN 5 MG TABLETS PO PRN (22:00)
[2018-06-11] MEDS: THIAMINE HCL 100 MG TABLET (FP) PO SCH (22:22)
[2018-06-11] MEDS: traZODone HCL 50 MG TABLET (FP) PO SCH (22:22)
[2018-06-12] MEDS: chlordiazePOXIDE HCL 25 MG CAPSULE PO SCH ×4 (05:28→22:26)
[2018-06-12] MEDS ORDERED: METHADONE HCL 10 MG TABLET (FOR DETOX USE ONLY) PO SCH (10:00)
[2018-06-12] MEDS: RANITIDINE HCL 150 MG TABLET (FP) PO SCH (10:28)
[2018-06-12] MEDS: PRENATAL VITAMINS W/ FOLIC ACID TABLET (FP) PO SCH (10:28)
[2018-06-12 10:48] LABS: ALBUMIN 4.8 g/dl (3.4-5.0); ALK PHOS 117 U/L (45-117); ANION GAP 13 MMOL/L (8-16); BILIRUBIN,TOTAL 1.3 mg/dL (0.2-1); BLOOD UREA NITROGEN 9 mg/dL (7-18); CALCIUM 9.7 mg/dL (8.5-10.1); CHLORIDE 90 mmol/L (98-107); CO2 33 mmol/L (21-32); CREATININE 0.9 mg/dL (0.55-1.3); GLUCOSE,RANDOM 129 mg/dL (74-106); POTASSIUM 3.2 mmol/L (3.5-5.1); SGOT/AST 73 U/L (15-37); SGPT/ALT 54 U/L (13-61); SODIUM 136 mmol/L (136-145); TOT PROT 9.1 g/dl (6.4-8.2)
[2018-06-12 11:08] LABS: HEMATOCRIT 51.1 % (35.4-49); HEMOGLOBIN 16.7 GM/dL (11.7-16.9); MCH 32.9 pg (25.7-33.7); MCHC 32.7 g/dl (32.0-35.9); MEAN CELL VOLUME 100.5 fl (80-96); MEAN PLT VOLUME 10.5 fl (7.5-11.1); PLATELET COUNT 135 K/MM3 (134-434); RBC 5.08 M/mm3 (4.00-5.60); RDW 13.7 % (11.9-15.9); WHITE BLOOD COUNT 8.1 K/mm3 (4.0-10.0)
--- NOTE | 2018-06-12 13:53 | PN ---
[facility] CIWA - CIWA Score Nausea/Vomitin-No Nausea/No Vomiting Muscle Tremors: 1-None Visible, but [place] Anxiety: 2 Agitation: 2 Paroxysmal Sweats: 2 Orientation: 0-Oriented Tacttile Disturbances: 0-None Auditory Disturbances: 0-None Visual Disturbances: 0-None Headache: 3-Moderate CIWA-Ar Total Score: 10 S COWS - Scale Resting Pulse: 1= [place] 81-100 Sweatin=Flushed/Facial Moisture Restless Observation: 1= Difficult to Sit Still Pupil Size: 0= Normal to Room Light Bone or Joint Aches: 2= Severe Diffuse Aches Runny Nose/ Eye Tearin= None GI Upset > 30mins: 0= None Tremor Observation of Outstretched Hands: 1= Tremor [place], Not Seen Yawning Observation: 0= None Anxiety or Irritability: 2=Irritable/Anxious Goose Flesh Skin: 0=Smooth Skin COWS Score: 9 S Progress Note (SOAP) Subjective: PATIENT C/O MILD TREMORS, CHILLS, ANXIETY AND HEADACHE. Objective: 06/12/18 13:50 Laboratory Tests 06/11/18 06/12/18 06/12/18 Unknown 05:40 05:40 WBC 8.1 RBC 5.08 Hgb 16.7 Hct 51.1 H D MCV 100.5 H MCH 32.9 MCHC 32.7 RDW 13.7 Plt Count 135 MPV 10.5 D Sodium 136 Potassium 3.2 L Chloride 90 L Carbon Dioxide 33 H Anion Gap 13 BUN 9 Creatinine 0.9 Creat Clearance w eGFR > 60 Random Glucose 129 H Calcium 9.7 Total Bilirubin 1.3 H AST 73 H ALT 54 Alkaline Phosphatase 117 Total Protein 9.1 H Albumin 4.8 Urine Color [place] Urine Appearance Turbid Urine pH 5.0 Ur Specific [place] 1.037 H Urine Protein 3+ H D Urine Glucose (UA) 1+ H Urine Ketones Trace H Urine Blood 1+ H Urine Nitrite Negative Urine Bilirubin 4.0 Urine Urobilinogen 2.0 Ur Leukocyte Esterase Negative Urine WBC (Auto) 9 Urine RBC (Auto) 1 Urine Bacteria Moderate Urine Mucus Many Urine Yeast Many RPR Titer 06/12/18 05:40 WBC RBC Hgb Hct MCV MCH MCHC RDW Plt Count MPV Sodium Potassium Chloride Carbon Dioxide Anion Gap BUN Creatinine Creat Clearance w eGFR Random Glucose Calcium Total Bilirubin AST ALT Alkaline Phosphatase Total Protein Albumin Urine Color Urine Appearance Urine pH Ur Specific [place] Urine Protein Urine Glucose (UA) Urine Ketones Urine Blood Urine Nitrite Urine Bilirubin Urine Urobilinogen Ur Leukocyte Esterase Urine WBC (Auto) Urine RBC (Auto) Urine Bacteria Urine Mucus Urine Yeast RPR Titer Nonreactive SKIN +FLUSHING, MOIST CAR S1S2 RESP CTA BL EXT +MILD TREMORS FELT, NO EDEMA ALERT AND ORIENTED X 3 AMB AD CURLY +ANXIOUS Assessment: 06/12/18 13:51 WITHDRAWAL SX HYPOKALEMIA ABNORMAL UA Plan: CONTINUE DETOX ORDERED KCL 20ME PO BID X ONE DAY REPEAT K LEVEL IN AM REPEAT UA ENCOURAGE ORAL FLUIDS CONTINUE TO MONITOR CLINICALLY
[2018-06-12] MEDS: POTASSIUM CHLORIDE TABS 20 MEQ TABLET.ER (FP) PO SCH ×2 (14:45→22:26)
[2018-06-12] MEDS: chlordiazePOXIDE HCL 25 MG CAPSULE PO PRN ×2 (15:01→19:43)
[2018-06-12 17:58] LABS: URINE APPEARANCE CLEAR; URINE BILIRUBIN NEGATIVE (<2.0 mg/dL); URINE COLOR YELLOW; URINE GLUCOSE (UA) NEGATIVE (NEGATIVE); URINE KETONE NEGATIVE (NEGATIVE); URINE LEUK ESTERASE NEGATIVE (NEGATIVE); URINE NITRITE NEGATIVE (NEGATIVE); URINE PROTEIN NEGATIVE (NEGATIVE); URINE UROBILINOGEN 4.0 E.U/dl mg/dL (0.2-1.0)
--- NOTE | 2018-06-12 18:10 | EKG ---
Test Reason : Blood Pressure : / mmHG Vent. Rate : 116 BPM Atrial Rate : 116 BPM P-R Int : 154 ms QRS Dur : 092 ms QT Int : 334 ms P-R-T Axes : 050 014 045 degrees QTc Int : 464 ms SINUS TACHYCARDIA POSSIBLE LEFT ATRIAL ENLARGEMENT BORDERLINE ECG WHEN COMPARED WITH ECG OF 06-MAY-2018 10:38, NO SIGNIFICANT CHANGE WAS FOUND Confirmed by TOMAS SANCHEZ MD ([id number]) on 06/12/2018 6:10:17 PM Referred By: Confirmed By:TOMAS SANCHEZ MD
[2018-06-12] MEDS: THIAMINE HCL 100 MG TABLET (FP) PO SCH (22:26)
[2018-06-12] MEDS: traZODone HCL 50 MG TABLET (FP) PO SCH (22:26)
[2018-06-13] MEDS: chlordiazePOXIDE HCL 25 MG CAPSULE PO SCH ×2 (05:28→10:31)
[2018-06-13] MEDS: PRENATAL VITAMINS W/ FOLIC ACID TABLET (FP) PO SCH (10:30)
[2018-06-13] MEDS: METHADONE HCL 5 MG TABLET (FOR DETOX USE ONLY) PO SCH (10:30)
[2018-06-13] MEDS: RANITIDINE HCL 150 MG TABLET (FP) PO SCH (10:31)
[2018-06-13] MEDS: POTASSIUM CHLORIDE TABS 20 MEQ TABLET.ER (FP) PO SCH (10:31)
--- NOTE | 2018-06-13 11:41 | PN ---
[facility] CIWA - CIWA Score Nausea/Vomitin-Mild Nausea/No Vomiting Muscle Tremors: 3 Anxiety: 2 Agitation: 2 Paroxysmal Sweats: 3 Orientation: 0-Oriented Tacttile Disturbances: 0-None Auditory Disturbances: 0-None Visual Disturbances: 0-None Headache: 1-Very Mild CIWA-Ar Total Score: 12 BHS COWS - Scale Resting Pulse: 2= [place] 101-120 Sweatin= Chills/Flushing Restless Observation: 3= Extraneous Movement Pupil Size: 0= Normal to Room Light Bone or Joint Aches: 1= Mild Discomfort Runny Nose/ Eye Tearin= Runny Nose/Eyes GI Upset > 30mins: 1= Stomach Cramp Tremor Observation of Outstretched Hands: 2= Slight Tremor Visible Yawning Observation: 0= None Anxiety or Irritability: 1=Feels Anxious/Irritable Goose Flesh Skin: 0=Smooth Skin COWS Score: 13 BHS Progress Note (SOAP) Subjective: Tremor, sweating, nausea Objective: 06/13/18 11:37 Last Vital Signs Temp Pulse Resp BP Pulse Ox 97.7 F 106 H 20 97/72 06/13/18 09:23 06/13/18 09:23 06/13/18 09:23 06/13/18 09:23 Hypotension noted Laboratory Tests 06/11/18 06/12/18 06/12/18 Unknown 05:40 05:40 WBC 8.1 RBC 5.08 Hgb 16.7 Hct 51.1 H D MCV 100.5 H MCH 32.9 MCHC 32.7 RDW 13.7 Plt Count 135 MPV 10.5 D Sodium 136 Potassium 3.2 L Chloride 90 L Carbon Dioxide 33 H Anion Gap 13 BUN 9 Creatinine 0.9 Creat Clearance w eGFR > 60 Random Glucose 129 H Calcium 9.7 Total Bilirubin 1.3 H AST 73 H ALT 54 Alkaline Phosphatase 117 Total Protein 9.1 H Albumin 4.8 Urine Color Jessy Urine Appearance Turbid Urine pH 5.0 Ur Specific [place] 1.037 H Urine Protein 3+ H D Urine Glucose (UA) 1+ H Urine Ketones Trace H Urine Blood 1+ H Urine Nitrite Negative Urine Bilirubin 4.0 Urine Urobilinogen 2.0 Ur Leukocyte Esterase Negative Urine WBC (Auto) 9 Urine RBC (Auto) 1 Urine Bacteria Moderate Urine Mucus Many Urine Yeast Many RPR Titer 06/12/18 06/12/18 06/13/18 05:40 15:49 07:30 WBC RBC Hgb Hct MCV MCH MCHC RDW Plt Count MPV Sodium Potassium 2.9 L* Chloride Carbon Dioxide Anion Gap BUN Creatinine Creat Clearance w eGFR Random Glucose Calcium Total Bilirubin AST ALT Alkaline Phosphatase Total Protein Albumin Urine Color Yellow Urine Appearance Clear Urine pH 8.0 D Ur Specific [place] 1.013 Urine Protein Negative Urine Glucose (UA) Negative Urine Ketones Negative Urine Blood Negative Urine Nitrite Negative Urine Bilirubin Negative Urine Urobilinogen 4.0 e.u/dl Ur Leukocyte Esterase Negative Urine WBC (Auto) Urine RBC (Auto) Urine Bacteria Urine Mucus Urine Yeast RPR Titer Nonreactive Labs reviewed: K level 2.9 (was 3.2), total bilirubin 1.3, glucose 129, total protein 9.1 Assessment: 06/13/18 11:38 Withdrawal symptoms Noted with hypotension, hypokalemia, hyperglycemia, increased total bilirubin and increased total protein Plan: Continue detox Hypotension: asymptomatic, encouraged PO water intake Hypokalemia: start K Dur liquid 40 Meq PO x 3 doses today (at least 4 hours apart), d/c K Dur 20mg PO BID, start K Dur 20 Meq PO daily tomorrow, repeat serum K level in AM Hyperglycemia: repeat fasting glucose, send HbA1c Increased total bilirubin: repeat serum total bilirubin Increased total protein: repeat serum total protein Ordered for CMP, A1c in AM
[2018-06-13] MEDS ORDERED: POTASSIUM CHLORIDE ORAL LIQUID 20 MEQ/15 ML PO ONE ×3 (12:00→21:00)
[2018-06-13] MEDS: chlordiazePOXIDE HCL 25 MG CAPSULE PO PRN (15:02)
[2018-06-13] MEDS: chlordiazePOXIDE 5 MG CAPSULE PO SCH ×2 (17:21→22:00)
[2018-06-13] MEDS: traZODone HCL 50 MG TABLET (FP) PO SCH (22:00)
[2018-06-13] MEDS: THIAMINE HCL 100 MG TABLET (FP) PO SCH (22:00)
[2018-06-14] MEDS: chlordiazePOXIDE 5 MG CAPSULE PO SCH ×2 (05:19→10:18)
[2018-06-14] MEDS: METHADONE HCL 5 MG TABLET (FOR DETOX USE ONLY) PO SCH (10:17)
[2018-06-14] MEDS: RANITIDINE HCL 150 MG TABLET (FP) PO SCH (10:17)
[2018-06-14] MEDS: PRENATAL VITAMINS W/ FOLIC ACID TABLET (FP) PO SCH (10:18)
[2018-06-14] MEDS: POTASSIUM CHLORIDE TABS 20 MEQ TABLET.ER (FP) PO SCH (10:18)
[2018-06-14 11:23] LABS: ALBUMIN 3.7 g/dl (3.4-5.0); ALK PHOS 98 U/L (45-117); ANION GAP 9 MMOL/L (8-16); BILIRUBIN,TOTAL 0.9 mg/dL (0.2-1); BLOOD UREA NITROGEN 12 mg/dL (7-18); CALCIUM 8.9 mg/dL (8.5-10.1); CHLORIDE 99 mmol/L (98-107); CO2 32 mmol/L (21-32); CREATININE 0.8 mg/dL (0.55-1.3); GLUCOSE,RANDOM 94 mg/dL (74-106); SGOT/AST 103 U/L (15-37); SGPT/ALT 67 U/L (13-61); SODIUM 139 mmol/L (136-145); TOT PROT 7.4 g/dl (6.4-8.2)
--- NOTE | 2018-06-14 13:35 | PN ---
BHS Progress Note (SOAP) Subjective: Tremor, chills, sweating, interrupted sleep Objective: 06/14/18 13:28 Last Vital Signs Temp Pulse Resp BP Pulse Ox 97.9 F 68 18 107/66 06/14/18 13:22 06/14/18 13:22 06/14/18 13:22 06/14/18 13:22 Laboratory Tests 06/11/18 06/12/18 06/12/18 Unknown 05:40 05:40 WBC 8.1 RBC 5.08 Hgb 16.7 Hct 51.1 H D MCV 100.5 H MCH 32.9 MCHC 32.7 RDW 13.7 Plt Count 135 MPV 10.5 D Sodium 136 Potassium 3.2 L Chloride 90 L Carbon Dioxide 33 H Anion Gap 13 BUN 9 Creatinine 0.9 Creat Clearance w eGFR > 60 Random Glucose 129 H Hemoglobin A1c % Calcium 9.7 Total Bilirubin 1.3 H AST 73 H ALT 54 Alkaline Phosphatase 117 Total Protein 9.1 H Albumin 4.8 Urine Color Jessy Urine Appearance Turbid Urine pH 5.0 Ur Specific [place] 1.037 H Urine Protein 3+ H D Urine Glucose (UA) 1+ H Urine Ketones Trace H Urine Blood 1+ H Urine Nitrite Negative Urine Bilirubin 4.0 Urine Urobilinogen 2.0 Ur Leukocyte Esterase Negative Urine WBC (Auto) 9 Urine RBC (Auto) 1 Urine Bacteria Moderate Urine Mucus Many Urine Yeast Many RPR Titer 06/12/18 06/12/18 06/13/18 05:40 15:49 07:30 WBC RBC Hgb Hct MCV MCH MCHC RDW Plt Count MPV Sodium Potassium 2.9 L* Chloride Carbon Dioxide Anion Gap BUN Creatinine Creat Clearance w eGFR Random Glucose Hemoglobin A1c % Calcium Total Bilirubin AST ALT Alkaline Phosphatase Total Protein Albumin Urine Color Yellow Urine Appearance Clear Urine pH 8.0 D Ur Specific [place] 1.013 Urine Protein Negative Urine Glucose (UA) Negative Urine Ketones Negative Urine Blood Negative Urine Nitrite Negative Urine Bilirubin Negative Urine Urobilinogen 4.0 e.u/dl Ur Leukocyte Esterase Negative Urine WBC (Auto) Urine RBC (Auto) Urine Bacteria Urine Mucus Urine Yeast RPR Titer Nonreactive 06/14/18 06/14/18 07:00 07:00 WBC RBC Hgb Hct MCV MCH MCHC RDW Plt Count MPV Sodium 139 Potassium 4.0 Chloride 99 Carbon Dioxide 32 Anion Gap 9 BUN 12 Creatinine 0.8 Creat Clearance w eGFR > 60 Random Glucose 94 Hemoglobin A1c % 5.3 Calcium 8.9 Total Bilirubin 0.9 AST 103 H ALT 67 H Alkaline Phosphatase 98 Total Protein 7.4 Albumin 3.7 Urine Color Urine Appearance Urine pH Ur Specific [place] Urine Protein Urine Glucose (UA) Urine Ketones Urine Blood Urine Nitrite Urine Bilirubin Urine Urobilinogen Ur Leukocyte Esterase Urine WBC (Auto) Urine RBC (Auto) Urine Bacteria Urine Mucus Urine Yeast RPR Titer Labs reviewed: repeated CMP and A1c within normal limits; UA normal result Assessment: 06/14/18 13:35 Withdrawal symptoms Plan: Continue detox Encouraged PO water intake
[2018-06-14] MEDS: chlordiazePOXIDE HCL 10 MG CAPSULE PO SCH ×2 (17:32→22:08)
[2018-06-14] MEDS: hydrOXYzine HCL 25 MG TABLET (FP) PO PRN (19:41)
[2018-06-14] MEDS: THIAMINE HCL 100 MG TABLET (FP) PO SCH (22:08)
[2018-06-14] MEDS: traZODone HCL 50 MG TABLET (FP) PO SCH (22:09)
[2018-06-15] MEDS: chlordiazePOXIDE HCL 10 MG CAPSULE PO SCH ×2 (05:53→10:34)
[2018-06-15] MEDS ORDERED: METHADONE HCL 10 MG TABLET (FOR DETOX USE ONLY) PO SCH (10:00)
[2018-06-15] MEDS: RANITIDINE HCL 150 MG TABLET (FP) PO SCH (10:34)
[2018-06-15] MEDS: PRENATAL VITAMINS W/ FOLIC ACID TABLET (FP) PO SCH (10:34)
[2018-06-15] MEDS: POTASSIUM CHLORIDE TABS 20 MEQ TABLET.ER (FP) PO SCH (10:34)
--- NOTE | 2018-06-15 15:03 | PN ---
BHS Progress Note (SOAP) Subjective: Tremor, chills, sweating, interrupted sleep Objective: 06/15/18 15:02 Last Vital Signs Temp Pulse Resp BP Pulse Ox 97.1 F L 81 18 106/75 06/15/18 13:23 06/15/18 13:23 06/15/18 13:23 06/15/18 13:23 Laboratory Tests 06/11/18 06/12/18 06/12/18 Unknown 05:40 05:40 WBC 8.1 RBC 5.08 Hgb 16.7 Hct 51.1 H D MCV 100.5 H MCH 32.9 MCHC 32.7 RDW 13.7 Plt Count 135 MPV 10.5 D Sodium 136 Potassium 3.2 L Chloride 90 L Carbon Dioxide 33 H Anion Gap 13 BUN 9 Creatinine 0.9 Creat Clearance w eGFR > 60 Random Glucose 129 H Hemoglobin A1c % Calcium 9.7 Total Bilirubin 1.3 H AST 73 H ALT 54 Alkaline Phosphatase 117 Total Protein 9.1 H Albumin 4.8 Urine Color Jessy Urine Appearance Turbid Urine pH 5.0 Ur Specific [place] 1.037 H Urine Protein 3+ H D Urine Glucose (UA) 1+ H Urine Ketones Trace H Urine Blood 1+ H Urine Nitrite Negative Urine Bilirubin 4.0 Urine Urobilinogen 2.0 Ur Leukocyte Esterase Negative Urine WBC (Auto) 9 Urine RBC (Auto) 1 Urine Bacteria Moderate Urine Mucus Many Urine Yeast Many RPR Titer 06/12/18 06/12/18 06/13/18 05:40 15:49 07:30 WBC RBC Hgb Hct MCV MCH MCHC RDW Plt Count MPV Sodium Potassium 2.9 L* Chloride Carbon Dioxide Anion Gap BUN Creatinine Creat Clearance w eGFR Random Glucose Hemoglobin A1c % Calcium Total Bilirubin AST ALT Alkaline Phosphatase Total Protein Albumin Urine Color Yellow Urine Appearance Clear Urine pH 8.0 D Ur Specific [place] 1.013 Urine Protein Negative Urine Glucose (UA) Negative Urine Ketones Negative Urine Blood Negative Urine Nitrite Negative Urine Bilirubin Negative Urine Urobilinogen 4.0 e.u/dl Ur Leukocyte Esterase Negative Urine WBC (Auto) Urine RBC (Auto) Urine Bacteria Urine Mucus Urine Yeast RPR Titer Nonreactive 06/14/18 06/14/18 07:00 07:00 WBC RBC Hgb Hct MCV MCH MCHC RDW Plt Count MPV Sodium 139 Potassium 4.0 Chloride 99 Carbon Dioxide 32 Anion Gap 9 BUN 12 Creatinine 0.8 Creat Clearance w eGFR > 60 Random Glucose 94 Hemoglobin A1c % 5.3 Calcium 8.9 Total Bilirubin 0.9 AST 103 H ALT 67 H Alkaline Phosphatase 98 Total Protein 7.4 Albumin 3.7 Urine Color Urine Appearance Urine pH Ur Specific [place] Urine Protein Urine Glucose (UA) Urine Ketones Urine Blood Urine Nitrite Urine Bilirubin Urine Urobilinogen Ur Leukocyte Esterase Urine WBC (Auto) Urine RBC (Auto) Urine Bacteria Urine Mucus Urine Yeast RPR Titer Labs reviewed Assessment: 06/15/18 15:02 Withdrawal symptoms Plan: Continue detox Encouraged PO water intake
[2018-06-15] MEDS: hydrOXYzine HCL 25 MG TABLET (FP) PO PRN (17:45)
[2018-06-15] MEDS: THIAMINE HCL 100 MG TABLET (FP) PO SCH (22:39)
[2018-06-15] MEDS: traZODone HCL 50 MG TABLET (FP) PO SCH (22:39)
[2018-06-16] MEDS ORDERED: METHADONE HCL 5 MG TABLET (FOR DETOX USE ONLY) PO SCH (06:00)
[2018-06-16 09:36] VITALS: BP 104/68; PULSE 79; TEMP 99
--- NOTE | 2018-06-16 10:53 | DS ---
[facility] Detox Discharge Summary Admission Date: 06/11/18 - History Present History: Alcohol Dependence, Opioid Dependence Pertinent Past History: GERD HTN History of craniotomy HLD - Physical Exam Results Vital Signs: Vital Signs Temperature 99.0 F 06/16/18 09:35 Pulse Rate 79 06/16/18 09:35 Respiratory Rate 18 06/16/18 09:35 Blood Pressure 104/68 06/16/18 09:35 O2 Sat by Pulse Oximetry (%) Pertinent Admission Physical Exam Findings: Withdrawal symptoms Laboratory Tests 06/11/18 06/12/18 06/12/18 Unknown 05:40 05:40 WBC 8.1 RBC 5.08 Hgb 16.7 Hct 51.1 H D MCV 100.5 H MCH 32.9 MCHC 32.7 RDW 13.7 Plt Count 135 MPV 10.5 D Sodium 136 Potassium 3.2 L Chloride 90 L Carbon Dioxide 33 H Anion Gap 13 BUN 9 Creatinine 0.9 Creat Clearance w eGFR > 60 Random Glucose 129 H Hemoglobin A1c % Calcium 9.7 Total Bilirubin 1.3 H AST 73 H ALT 54 Alkaline Phosphatase 117 Total Protein 9.1 H Albumin 4.8 Urine Color Ejssy Urine Appearance Turbid Urine pH 5.0 Ur Specific [place] 1.037 H Urine Protein 3+ H D Urine Glucose (UA) 1+ H Urine Ketones Trace H Urine Blood 1+ H Urine Nitrite Negative Urine Bilirubin 4.0 Urine Urobilinogen 2.0 Ur Leukocyte Esterase Negative Urine WBC (Auto) 9 Urine RBC (Auto) 1 Urine Bacteria Moderate Urine Mucus Many Urine Yeast Many RPR Titer 06/12/18 06/12/18 06/13/18 05:40 15:49 07:30 WBC RBC Hgb Hct MCV MCH MCHC RDW Plt Count MPV Sodium Potassium 2.9 L* Chloride Carbon Dioxide Anion Gap BUN Creatinine Creat Clearance w eGFR Random Glucose Hemoglobin A1c % Calcium Total Bilirubin AST ALT Alkaline Phosphatase Total Protein Albumin Urine Color Yellow Urine Appearance Clear Urine pH 8.0 D Ur Specific [place] 1.013 Urine Protein Negative Urine Glucose (UA) Negative Urine Ketones Negative Urine Blood Negative Urine Nitrite Negative Urine Bilirubin Negative Urine Urobilinogen 4.0 e.u/dl Ur Leukocyte Esterase Negative Urine WBC (Auto) Urine RBC (Auto) Urine Bacteria Urine Mucus Urine Yeast RPR Titer Nonreactive 06/14/18 06/14/18 07:00 07:00 WBC RBC Hgb Hct MCV MCH MCHC RDW Plt Count MPV Sodium 139 Potassium 4.0 Chloride 99 Carbon Dioxide 32 Anion Gap 9 BUN 12 Creatinine 0.8 Creat Clearance w eGFR > 60 Random Glucose 94 Hemoglobin A1c % 5.3 Calcium 8.9 Total Bilirubin 0.9 AST 103 H ALT 67 H Alkaline Phosphatase 98 Total Protein 7.4 Albumin 3.7 Urine Color Urine Appearance Urine pH Ur Specific [place] Urine Protein Urine Glucose (UA) Urine Ketones Urine Blood Urine Nitrite Urine Bilirubin Urine Urobilinogen Ur Leukocyte Esterase Urine WBC (Auto) Urine RBC (Auto) Urine Bacteria Urine Mucus Urine Yeast RPR Titer Labs reviewed - Treatment Hospital Course: Detox Protocol Followed, Detoxed Safely, Responded well, Discharged Condition Good - Medication Discharge Medications: Ambulatory Orders Metoprolol Succinate [Toprol Xl] 50 mg PO DAILY 11/19/17 Ranitidine [Zantac -] 150 mg PO DAILY #30 tablet 11/23/17 Aripiprazole [Abilify Maintena] 300 mg IM MONTHLY 06/11/18 traZODone HCL [Desyrel -] 150 mg PO HS 06/11/18 - Diagnosis (1) Hypotension Current Visit: Yes Status: Resolved (2) Hyperglycemia Current Visit: Yes Status: Resolved (3) Total bilirubin, elevated Current Visit: Yes Status: Resolved (4) Elevated total protein Current Visit: Yes Status: Resolved (5) Alcohol dependence with uncomplicated withdrawal Current Visit: Yes Status: Acute (6) Anxiety Current Visit: Yes Status: Acute (7) Drug-induced mood disorder Current Visit: Yes Status: Acute (8) Essential hypertension Current Visit: Yes Status: Chronic (9) History of craniotomy Current Visit: Yes Status: Chronic (10) Insomnia Current Visit: Yes Status: Acute (11) Opioid dependence with withdrawal Current Visit: Yes Status: Acute (12) Bipolar disorder Current Visit: Yes Status: Chronic (13) GERD (gastroesophageal reflux disease) Current Visit: Yes Status: Chronic Qualifiers: Esophagitis presence: esophagitis presence not specified Qualified Code(s) : K21.9 - Gastro-esophageal reflux disease without esophagitis (14) Hx of hypercholesterolemia Current Visit: Yes Status: Chronic (15) Hypokalemia Current Visit: Yes Status: Resolved - AMA Did Patient Leave Against Medical Advice: No (F/U with your PCP within 1-2 weeks )
[2018-06-16] MEDS: POTASSIUM CHLORIDE TABS 20 MEQ TABLET.ER (FP) PO SCH (11:01)
[2018-06-16] MEDS: PRENATAL VITAMINS W/ FOLIC ACID TABLET (FP) PO SCH (11:01)
[2018-06-16] MEDS: RANITIDINE HCL 150 MG TABLET (FP) PO SCH (11:01)
== END 2018-06-16 11:15 | disposition home or self-care (01) | DRG 897 ==
LOC: YASAS 10:41 → Y3N 12:27
PROC: HZ2ZZZZ Detoxification Services for Substance Abuse Treatment (ICD-10-PCS; principal; 2018-06-11)
DX: F11.23 Opioid dependence with withdrawal (principal); F10.230 Alcohol dependence with withdrawal, uncomplicated; F19.24 Other psychoactive substance dependence with psychoactive substance-induced mood disorder; F41.9 Anxiety disorder, unspecified; F31.9 Bipolar disorder, unspecified; I10 Essential (primary) hypertension; I95.9 Hypotension, unspecified; G47.00 Insomnia, unspecified; K21.9 Gastro-esophageal reflux disease without esophagitis; R79.9 Abnormal finding of blood chemistry, unspecified; R82.90 Unspecified abnormal findings in urine; E80.7 Disorder of bilirubin metabolism, unspecified; E87.6 Hypokalemia; R26.2 Difficulty in walking, not elsewhere classified; Z99.89 Dependence on other enabling machines and devices; Z98.890 Other specified postprocedural states; Z91.5 Personal history of self-harm
CPT/HCPCS: 36415; 80053; 81003; 81015; 83036; 84132; 85027; 86593; 93005; 93010

== ENCOUNTER 2018-07-25 12:58 | Inpatient (IN) | payer OTHER ==
[2018-07-25 14:04] VITALS: BMI 28.8
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
[2018-07-25] MEDS ORDERED: ACETAMINOPHEN 325 MG TABLET (FP) PO PRN (17:30)
[2018-07-25] MEDS ORDERED: chlordiazePOXIDE HCL 25 MG CAPSULE PO ONE (17:30)
[2018-07-25] MEDS ORDERED: MAGNESIUM HYDROX 2400MG/30ML ORAL SUSPENSION 30 ML CUP PO PRN (17:30)
[2018-07-25] MEDS ORDERED: MAG HYDROX/AL HYDROX/SIMETH 30 ML UNIT-DOSE CUP PO PRN (17:30)
[2018-07-25] MEDS ORDERED: P-EPHED 60MG/TRIPROLIDI 2.5MG TABLET PO PRN (17:30)
[2018-07-25] MEDS ORDERED: NICOTINE POLACRILEX 2 MG GUM BC PRN (17:30)
[2018-07-25] MEDS ORDERED: guaiFENesin/D-METHORPHAN HB 10 ML UNIT-DOSE CUPS PO PRN (17:30)
[2018-07-25] MEDS ORDERED: LOPERAMIDE HCL 2 MG CAPSULE PO PRN (17:30)
[2018-07-25] MEDS ORDERED: IBUPROFEN 400 MG TABLET (FP) PO PRN (17:30)
[2018-07-25] MEDS ORDERED: MENTHOL/PHENOL 1 EACH UD MM PRN (17:30)
[2018-07-25] MEDS ORDERED: MAGNESIUM CITRATE 300 ML BOTTLE PO PRN (17:30)
[2018-07-25] MEDS: NICOTINE 14 MG/24 HOURS TOPICAL PATCH TD SCH (18:23)
[2018-07-25] MEDS ORDERED: MELATONIN 5 MG TABLETS PO PRN (22:00)
[2018-07-25] MEDS: THIAMINE HCL 100 MG TABLET (FP) PO SCH (22:18)
[2018-07-25] MEDS: chlordiazePOXIDE HCL 25 MG CAPSULE PO SCH (22:18)
[2018-07-26 01:32] LABS: URINE APPEARANCE SLCLOUDY; URINE BILIRUBIN NEGATIVE (<2.0 mg/dL); URINE COLOR AMBER; URINE GLUCOSE (UA) NEGATIVE (NEGATIVE); URINE KETONE TRACE (NEGATIVE); URINE LEUK ESTERASE 1+ (NEGATIVE); URINE NITRITE NEGATIVE (NEGATIVE); URINE PROTEIN 2+ (NEGATIVE); URINE UROBILINOGEN NEGATIVE mg/dL (0.2-1.0)
[2018-07-26 01:53] LABS: EPI CELLS RARE /HPF (FEW); URINE BACTERIA RARE /hpf (NONE SEEN); URINE MUCUS MANY
[2018-07-26] MEDS: chlordiazePOXIDE HCL 25 MG CAPSULE PO SCH ×4 (05:38→22:04)
--- NOTE | 2018-07-26 07:49 | CONSULT ---
[facility] Psychiatric Consult - Data Date of interview: 07/26/18 Admission source: [facility] Identifying data: This is a 57 years old male, [facility], , living alone, on SSI support, with history of Bipolar Disorder, history of Psychiatric hospitaliuzation, with history of Alcohol and opioid dependence, currently reporting withdrawal symptoms and seeking detox, Substance Abuse History: - Smoking Cessation. Smoking history: Never smoked. Have you smoked in the past 12 months: No. Aproximately how many cigarettes per day: 0. If you are a former smoker, when did you quit?: 61/2 years ago. Hx Chewing Tobacco Use: No. - Substance & Tx. History. Hx Alcohol Use: Yes. Hx Substance Use: Yes. Substance Use Type: Alcohol. Hx Substance Use Treatment : Yes. - Substances Abused. Alcohol. Route: Oral. Frequency: Daily. Amount used: 750 mL of vodka. Age of first use: 16. Date of Last Use: . Buprenorphine. Route: Oral. Frequency: 1-2 times per week. Amount used: 1 strip. Age of first use: 57. Date of Last Use: 07/21/18. Non-Rx Methadone. Route: Oral. Frequency: 1-2 times per week. Amount used: 80mg. Age of first use: 57. Date of Last Use: 07/22/18 Medical History: History of craniotomy after brain damage, reports using cane since 2015 after craniotomy procedure, GERD, Syncope history, Seizure history, Proteinuria history, Hypercholesterolemia history, Psychiatric History: Patient reports to carry Bipolar Disorder with m,ost recent psychiatric admission on [facility], currently stable on: Abilify Maintena 300mg IM,Monthly with last injection done on 07/06. Trazodone 150mg po qhs. Denies suicidal, homicidal history Physical/Sexual Abuse/Trauma History: Denies Additional Comment: Abilify Maintena 300mg IM,Monthly with last injection done on 07/06. Trazodone 150mg po qhs Mental Status Exam - Mental Status Exam Alert and Oriented to: Place, Person Cognitive Function: Fair Patient Appearance: Unkempt Mood: Apprehensive Affect: Mood Congruent Patient Behavior: Cooperative Speech Pattern: Appropriate Voice Loudness: Normal Thought Process: Goal Oriented Thought Disorder: Being Controlled Hallucinations: Denies Suicidal Ideation: Denies Homicidal Ideation: Denies Insight/Judgement: Fair Sleep: Difficulty falling asleep Appetite: Fair Muscle strength/Tone: Moderate Hypotonicity Gait/Station: Deferred Additional Comments: Abilify Maintena 300mg IM,Monthly with last injection done on 07/06. Trazodone 150mg po qhs Psychiatric Findings - Problem List ([place] 1, 2,3) (1) Alcohol dependence with uncomplicated withdrawal Current Visit: Yes Status: Acute (2) Bipolar disorder Current Visit: Yes Status: Chronic Comment: As per self-report.On medications.Followed at [facility] OPD clinic in the [place]. (3) Acute alcohol dependence syndrome Current Visit: No Status: Acute (4) Alcohol dependence Current Visit: No Status: Acute (5) Alcohol dependence with alcohol-induced anxiety disorder Current Visit: No Status: Acute (6) Drug-induced mood disorder Current Visit: No Status: Acute (7) Opioid dependence with withdrawal Current Visit: No Status: Acute (8) Hx of deep venous thrombosis Current Visit: Yes Status: Chronic (9) Hx of hypercholesterolemia Current Visit: Yes Status: Chronic (10) Hypertension Current Visit: Yes Status: Chronic Qualifiers: Hypertension type: essential hypertension (11) Neuropathy Current Visit: Yes Status: Chronic (12) Tremor due to drug withdrawal Current Visit: Yes Status: Chronic (13) Use of cane as ambulatory aid Current Visit: Yes Status: Chronic (14) History of craniotomy Current Visit: Yes Status: Resolved - Initial Treatment Plan Initial Treatment Plan: Abilify maintena 300mg im 1/month, last isnjection done on 07/06/18. Trazodone 150mg po qhs
[2018-07-26] MEDS: RANITIDINE HCL 150 MG TABLET (FP) PO SCH (10:11)
[2018-07-26] MEDS: PRENATAL VITAMINS W/ FOLIC ACID TABLET (FP) PO SCH (10:11)
[2018-07-26] MEDS: NICOTINE 14 MG/24 HOURS TOPICAL PATCH TD SCH (10:13)
[2018-07-26 10:19] LABS: HEMOGLOBIN 14.2 GM/dL (11.7-16.9); MCH 32.9 pg (25.7-33.7); MCHC 32.3 g/dl (32.0-35.9); MEAN CELL VOLUME 101.9 fl (80-96); MEAN PLT VOLUME 9.2 fl (7.5-11.1); PLATELET COUNT 146 K/MM3 (134-434); RBC 4.32 M/mm3 (4.00-5.60); RDW 14.6 % (11.9-15.9); WHITE BLOOD COUNT 5.4 K/mm3 (4.0-10.0)
[2018-07-26 10:38] LABS: ALBUMIN 3.4 g/dl (3.4-5.0); ALK PHOS 100 U/L (45-117); ANION GAP 6 MMOL/L (8-16); BILIRUBIN,TOTAL 1.1 mg/dL (0.2-1); BLOOD UREA NITROGEN 6 mg/dL (7-18); CALCIUM 8.6 mg/dL (8.5-10.1); CHLORIDE 100 mmol/L (98-107); CO2 33 mmol/L (21-32); CREATININE 0.7 mg/dL (0.55-1.3); GLUCOSE,RANDOM 93 mg/dL (74-106); POTASSIUM 3.5 mmol/L (3.5-5.1); SGOT/AST 55 U/L (15-37); SGPT/ALT 38 U/L (13-61); SODIUM 139 mmol/L (136-145); TOT PROT 6.9 g/dl (6.4-8.2)
--- NOTE | 2018-07-26 10:49 | PN ---
S CIWA - CIWA Score Nausea/Vomitin-No Nausea/No Vomiting Muscle Tremors: 3 Anxiety: 3 Agitation: 4-Moderately Restless Paroxysmal Sweats: 3 Orientation: 0-Oriented Tacttile Disturbances: 0-None Auditory Disturbances: 0-None Visual Disturbances: 0-None Headache: 0-None Present CIWA-Ar Total Score: 13 BHS Progress Note (SOAP) Subjective: shakes sweats interrupted sleep body aches anxiety i need ensure Objective: 07/26/18 10:47 Vital Signs Temperature 98.1 F 07/26/18 09:13 Pulse Rate 66 07/26/18 09:13 Respiratory Rate 18 07/26/18 09:13 Blood Pressure 117/67 07/26/18 09:13 O2 Sat by Pulse Oximetry (%) Laboratory Tests 07/26/18 07/26/18 07/26/18 00:05 07:10 07:10 WBC 5.4 RBC 4.32 Hgb 14.2 Hct 44.0 MCV 101.9 H MCH 32.9 MCHC 32.3 RDW 14.6 Plt Count 146 MPV 9.2 D Sodium 139 Potassium 3.5 Chloride 100 Carbon Dioxide 33 H Anion Gap 6 L BUN 6 L Creatinine 0.7 Creat Clearance w eGFR > 60 Random Glucose 93 Calcium 8.6 Total Bilirubin 1.1 H AST 55 H ALT 38 Alkaline Phosphatase 100 Total Protein 6.9 Albumin 3.4 Urine Color Jessy Urine Appearance Slcloudy Urine pH 5.0 D Ur Specific [place] 1.021 Urine Protein 2+ H Urine Glucose (UA) Negative Urine Ketones Trace H Urine Blood 1+ H Urine Nitrite Negative Urine Bilirubin Negative Urine Urobilinogen Negative Ur Leukocyte Esterase 1+ H Urine WBC (Auto) 65 Urine RBC (Auto) 5 Ur Epithelial Cells Rare Urine Bacteria Rare Urine Mucus Many repeat u/a aaox3 ambulating no acute distress Assessment: 07/26/18 10:48 withdrawal sx Plan: continue detox increase fluids ensure plus 120ml po bid
[2018-07-26] MEDS: chlordiazePOXIDE HCL 25 MG CAPSULE PO PRN (12:25)
[2018-07-26] MEDS: THIAMINE HCL 100 MG TABLET (FP) PO SCH (22:04)
[2018-07-26] MEDS: traZODone HCL 50 MG TABLET (FP) PO SCH (22:05)
[2018-07-27] MEDS: chlordiazePOXIDE HCL 25 MG CAPSULE PO SCH ×3 (05:53→17:36)
[2018-07-27] MEDS: chlordiazePOXIDE HCL 25 MG CAPSULE PO PRN (08:45)
[2018-07-27] MEDS: RANITIDINE HCL 150 MG TABLET (FP) PO SCH (10:31)
[2018-07-27] MEDS: PRENATAL VITAMINS W/ FOLIC ACID TABLET (FP) PO SCH (10:31)
[2018-07-27] MEDS: NICOTINE 14 MG/24 HOURS TOPICAL PATCH TD SCH (10:32)
--- NOTE | 2018-07-27 10:37 | PN ---
S CIWA - CIWA Score Nausea/Vomitin-No Nausea/No Vomiting Muscle Tremors: 3 Anxiety: 3 Agitation: 3 Paroxysmal Sweats: 3 Orientation: 0-Oriented Tacttile Disturbances: 0-None Auditory Disturbances: 0-None Visual Disturbances: 0-None Headache: 0-None Present CIWA-Ar Total Score: 12 BHS Progress Note (SOAP) Subjective: sweats interrupted sleep agitation mild shakes Objective: 07/27/18 10:36 Vital Signs Temperature 96.8 F L 07/27/18 09:20 Pulse Rate 75 07/27/18 09:20 Respiratory Rate 16 07/27/18 09:20 Blood Pressure 114/69 07/27/18 09:20 O2 Sat by Pulse Oximetry (%) aaox3 ambulating no acute distress Assessment: 07/27/18 10:36 withdrawal sx Plan: continue detox increase fluids
[2018-07-27] MEDS: traZODone HCL 50 MG TABLET (FP) PO SCH (22:01)
[2018-07-27] MEDS: THIAMINE HCL 100 MG TABLET (FP) PO SCH (22:01)
[2018-07-27] MEDS: chlordiazePOXIDE 5 MG CAPSULE PO SCH (22:01)
[2018-07-28] MEDS: chlordiazePOXIDE 5 MG CAPSULE PO SCH ×3 (06:01→20:40)
[2018-07-28] MEDS: RANITIDINE HCL 150 MG TABLET (FP) PO SCH (10:04)
[2018-07-28] MEDS: PRENATAL VITAMINS W/ FOLIC ACID TABLET (FP) PO SCH (10:04)
[2018-07-28] MEDS: NICOTINE 14 MG/24 HOURS TOPICAL PATCH TD SCH (10:05)
--- NOTE | 2018-07-28 10:46 | PN ---
BHS Progress Note (SOAP) Subjective: feeling better little sweats Objective: 07/28/18 10:45 Vital Signs Temperature 97.7 F 07/28/18 09:56 Pulse Rate 57 L 07/28/18 09:56 Respiratory Rate 18 07/28/18 09:56 Blood Pressure 104/57 L 07/28/18 09:56 O2 Sat by Pulse Oximetry (%) aaox3 ambulating no acute distress Assessment: 07/28/18 10:46 mild withdrawal sx Plan: continue detox increase fluids d/c in am
[2018-07-28] MEDS: traZODone HCL 50 MG TABLET (FP) PO SCH (22:43)
[2018-07-28] MEDS: chlordiazePOXIDE HCL 10 MG CAPSULE PO SCH (22:44)
[2018-07-28] MEDS: THIAMINE HCL 100 MG TABLET (FP) PO SCH (22:44)
[2018-07-29] MEDS: chlordiazePOXIDE HCL 10 MG CAPSULE PO SCH (05:56)
--- NOTE | 2018-07-29 08:55 | DS ---
[facility] Detox Discharge Summary Admission Date: 07/25/18 Discharge Date: 07/29/18 - History Present History: Alcohol Dependence - Physical Exam Results Vital Signs: Vital Signs Temperature 98.2 F 07/29/18 06:00 Pulse Rate 100 H 07/29/18 06:00 Respiratory Rate 07/29/18 06:00 Blood Pressure 101/67 07/29/18 06:00 O2 Sat by Pulse Oximetry (%) - Treatment Hospital Course: Detox Protocol Followed, Detoxed Safely, Responded well, Discharged Condition Good, Rehab Referral Accepted - Medication Discharge Medications: Ambulatory Orders Metoprolol Succinate [Toprol Xl] 50 mg PO DAILY 11/19/17 Ranitidine [Zantac -] 150 mg PO DAILY #30 tablet 11/23/17 Aripiprazole [Abilify Maintena] 300 mg IM MONTHLY 06/11/18 Trazodone HCl 150 mg PO HS #30 tablet 07/26/18 traZODone HCL [Desyrel -] 150 mg PO HS #30 tablet 07/26/18 - Diagnosis (1) Alcohol dependence with uncomplicated withdrawal Current Visit: Yes Status: Chronic (2) Anxiety Current Visit: Yes Status: Chronic (3) Bipolar disorder Current Visit: Yes Status: Chronic (4) Hx of deep venous thrombosis Current Visit: Yes Status: Chronic (5) Hx of hypercholesterolemia Current Visit: Yes Status: Chronic (6) Hypertension Current Visit: Yes Status: Chronic Qualifiers: Hypertension type: essential hypertension (7) Neuropathy Current Visit: Yes Status: Chronic (8) Nicotine dependence Current Visit: Yes Status: Chronic Qualifiers: Nicotine product type: cigarettes Substance use status: uncomplicated Qualified Code(s): F17.210 - Nicotine dependence, cigarettes, uncomplicated (9) Use of cane as ambulatory aid Current Visit: Yes Status: Chronic (10) Alcohol dependence with alcohol-induced mood disorder Current Visit: Yes Status: Suspected (11) History of craniotomy Current Visit: Yes Status: Resolved (12) Alcohol dependence with alcohol-induced anxiety disorder Current Visit: No Status: Acute (13) Drug-induced mood disorder Current Visit: No Status: Acute (14) Insomnia Current Visit: No Status: Acute (15) Opioid dependence with withdrawal Current Visit: Yes Status: Chronic (16) Depressive disorder Current Visit: No Status: Chronic (17) GERD (gastroesophageal reflux disease) Current Visit: Yes Status: Chronic Qualifiers: Esophagitis presence: without esophagitis Qualified Code(s): K21.9 - Gastro -esophageal reflux disease without esophagitis
[2018-07-29 09:07] VITALS: BP 118/76; PULSE 83; TEMP 98.1
== END 2018-07-29 09:05 | disposition home or self-care (01) | DRG 897 ==
LOC: YASAS 12:58 → Y6N 16:04
PROC: HZ2ZZZZ Detoxification Services for Substance Abuse Treatment (ICD-10-PCS; principal; 2018-07-25)
DX: F11.23 Opioid dependence with withdrawal (principal); F33.40 Major depressive disorder, recurrent, in remission, unspecified; F10.230 Alcohol dependence with withdrawal, uncomplicated; F17.210 Nicotine dependence, cigarettes, uncomplicated; F19.24 Other psychoactive substance dependence with psychoactive substance-induced mood disorder; F10.24 Alcohol dependence with alcohol-induced mood disorder; F10.280 Alcohol dependence with alcohol-induced anxiety disorder; F31.9 Bipolar disorder, unspecified; F41.9 Anxiety disorder, unspecified; G62.9 Polyneuropathy, unspecified; G47.00 Insomnia, unspecified; I10 Essential (primary) hypertension; E78.00 Pure hypercholesterolemia, unspecified; K21.9 Gastro-esophageal reflux disease without esophagitis; E87.6 Hypokalemia; R80.9 Proteinuria, unspecified; E55.9 Vitamin D deficiency, unspecified; G25.1 Drug-induced tremor; Z86.79 Personal history of other diseases of the circulatory system; Z86.69 Personal history of other diseases of the nervous system and sense organs; Z86.718 Personal history of other venous thrombosis and embolism; Z98.890 Other specified postprocedural states; R26.89 Other abnormalities of gait and mobility; Z99.89 Dependence on other enabling machines and devices; Z91.81 History of falling
CPT/HCPCS: 36415; 80053; 81003; 81015; 85027; 86593